=== PATIENT | male | born 1995 | race Caucasian/White ===

== ENCOUNTER 2021-06-21 08:58 | Emergency (ER) | payer MEDICARE, OTHER, MEDICAID, SELFPAY ==
--- NOTE | ~2021-06-21 | XR_ITS ---
XR hand RT min 3V 06/21/2021 09:23 Indication: Right hand pain after trauma. Seizure. Procedure: 3 views right hand Comparison: No prior studies for comparison. Findings: No fracture, subluxation or dislocation. No significant soft tissue abnormality. No foreign body. Impression: 1: No acute fracture. Reviewed, dictated and finalized at location A. ICE ENTRANCE ATTENDANT Impression: 1: No acute fracture.
[2021-06-21 09:15] VITALS: BP 143/75; PULSE 137; RESP 14; TEMP 37.1; O2SAT 99
--- NOTE | 2021-06-21 09:26 | PC.NURSE ---
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
--- NOTE | 2021-06-21 09:43 | ED.GENADULT ---
HPI - General Adult General Chief complaint: Extremity Injury, Upper Stated complaint: right hand injury Source: patient Mode of arrival: ambulatory Limitations: no limitations History of Present Illness HPI narrative: Patient presents for evaluation of pain in the fifth digit of the right hand. Parents indicate patient was with his grandmother at the grocery store yesterday when he had a seizure that lasted approximately 30 seconds. Patient has a known seizure disorder and is compliant with antiepileptics. He also has a vagal nerve stimulator. Neurologist is Dr. Peoples. Pt does have 4-5 seizures per day. Parents state during yesterday's seizure he got the fifth digit of his right hand stuck in a grocery cart. He has had pain in affected area since that time and has some bruising to that digit. He is ambidextrous. Parents state he did not bite his tongue nor was he incontinent. Related Data Home Medications Medication Instructions Recorded Confirmed amlodipine 10 mg PO DAILY 06/21/21 06/21/21 cannabidiol [Epidiolex] 8 mg PO BID 06/21/21 06/21/21 clobazam 10 mg PO BID 06/21/21 06/21/21 lacosamide [Vimpat] 150 mg PO BID 06/21/21 06/21/21 quetiapine 50 mg PO BID 06/21/21 06/21/21 Allergies Allergy/AdvReac Type Severity Reaction Status Date / Time amoxicillin [From Augmentin] Allergy Hives Verified 06/21/21 09:22 clavulanic acid Allergy Hives Verified 06/21/21 09:22 [From Augmentin] lorazepam [From Ativan] Allergy Anaphylaxis Verified 06/21/21 09:22 prochlorperazine Allergy Swelling Verified 06/21/21 09:22 [From Compazine] of Lip/Tongue/Throat selamate Allergy Rash Uncoded 06/21/21 09:22 Review of Systems Review of Systems: CONSTITUTIONAL: Denies fever, chills, or sweats. EYES: Denies visual changes, redness, or discharge. ENT: Denies rhinorrhea, congestion, sore throat, or otalgia. CARDIOVASCULAR: Denies chest pain, palpitations, or edema. RESPIRATORY: Denies cough or dyspnea. GASTROINTESTINAL: Denies abdominal pain, nausea, vomiting, or diarrhea. GENITOURINARY: Denies dysuria or hematuria. SKIN: Reports bruising to fifth digit of right hand. Denies rash or itching. MUSCULOSKELETAL: Reports pain in fifth digit of right hand. Denies back pain or myalgia. NEUROLOGIC: Reports recent seizure. Denies headache, numbness, dizziness, or weakness. PSYCHIATRIC: Denies anxiety or depression. [facility] Past Medical History Medical History (Updated 06/21/21 @ 09:53 by JESSICA Sheldon, ) Hypertension Kidney disease Seizure Surgical History Surgical History Hx of tonsillectomy Status post VNS (vagus nerve stimulator) placement Family History Family History Mother Medical history non-contributory Social History Social History Smoking status: Never smoker Substance use: never Living arrangements: with family Gender identity (if verbalized by the patient): Male Spiritual care concerns: No Exam Narrative: GENERAL: Well-appearing, well-nourished, and in no acute distress. HEAD: Normocephalic, atraumatic. EYES: PERRLA and EOMI. ENT: Nares clear, no rhinorrhea or epistaxis. Mucous membranes moist. Oropharynx without tonsillar hypertrophy exudate or other lesions. Bilateral TMs pearly sánchez nonbulging NECK: Supple. No adenopathy or masses. No carotid bruits or JVD CHEST: Clear to auscultation. No respiratory distress. No wheezes rales or rhonchi HEART: Regular rate and rhythm. No murmur heard. Normal peripheral pulses. ABDOMEN: Soft, nontender, nondistended, normal active bowel sounds. EXTREMITIES: Tenderness over PIP joint of fifth digit of the right hand. Normal range of motion. No edema. SKIN: Ecchymosis noted overlying the PIP joint of the fifth digit of the right hand. Skin is warm, dry, no rash. NEUR
== END 2021-06-21 10:02 | disposition home or self-care (01) ==
PROVIDERS: Emergency Provider Nurse Practitioner; PCP Internal Medicine
DX: S60.051A Contusion of right little finger without damage to nail, initial encounter (principal); X58.XXXA Exposure to other specified factors, initial encounter; I10 Essential (primary) hypertension; G40.909 Epilepsy, unspecified, not intractable, without status epilepticus; N28.9 Disorder of kidney and ureter, unspecified
CPT/HCPCS: 29130; 73130; 99213; G0463

== ENCOUNTER 2022-05-04 16:55 | Emergency (ER) | payer MEDICARE, OTHER, MEDICAID, SELFPAY ==
--- NOTE | ~2022-05-04 | XR_ITS ---
XR foot LT min 3V DATE: 05/04/2022 18:24 INDICATION: Fall. Left lateral ankle and dorsal foot pain TECHNIQUE: 4 views COMPARISON: None FINDINGS: There is osteopenia. Hallux valgus and bunion deformity. Pes planus. No fracture or dislocation, periosteal reaction or bone destruction. Virtually nondisplaced lateral malleolar fracture. IMPRESSION: Virtually nondisplaced lateral malleolar fracture Osteopenia Reviewed, dictated and finalized at location A. [employer]ED [employer] BOARD
--- NOTE | ~2022-05-04 | XR_ITS ---
XR ankle LT min 3V DATE: 05/04/2022 18:24 INDICATION: Fall. Left lateral ankle pain. Dorsal foot pain. TECHNIQUE: 4 views COMPARISON: None FINDINGS: There is a nondisplaced linear oblique fracture of the lateral malleolus with overlying sof t tissue swelling. The medial malleolus and posterior malleolus appear intact. Ankle mortise is prese rved. Diffuse osteopenia. IMPRESSION: Nondisplaced lateral malleolar fracture Reviewed, dictated and finalized at location A. 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
--- NOTE | 2022-05-04 17:01 | ED.LOWEXIN ---
HPI - Extremity Injury (Lower) General Stated Complaint: Fall Injury/Left Foot Injury Time Seen by Provider: 05/04/22 17:15 Source: patient and RN notes reviewed Mode of arrival: ambulatory Limitations: no limitations History of Present Illness HPI Narrative: 26 year old male presents with concern for ankle pain.? Mother reports patient has a seizure disorder, had a seizure today and fell and is having left ankle pain. He is normally weight-bearing, will not bear weight on the left lower extremity. He reports lateral pain with palpation..? Patient has a known seizure disorder and is compliant with antiepileptics.? He also has a vagal nerve stimulator.? Neurologist is Dr. Peoples.? Pt does have 4-5 seizures per day. Patient reports bruising and swelling to the ankle Related Data Home Medications Medication Instructions Recorded Confirmed amlodipine 10 mg tablet 10 mg PO DAILY 06/21/21 06/21/21 cannabidiol 100 mg/mL oral 8 mg PO BID 06/21/21 06/21/21 solution (Epidiolex) clobazam 10 mg tablet 10 mg PO BID 06/21/21 06/21/21 lacosamide 150 mg tablet (Vimpat) 150 mg PO BID 06/21/21 06/21/21 quetiapine 50 mg tablet 50 mg PO BID 06/21/21 06/21/21 Allergies Allergy/AdvReac Type Severity Reaction Status Date / Time amoxicillin [From Augmentin] Allergy Hives Verified 06/21/21 09:22 clavulanic acid Allergy Hives Verified 06/21/21 09:22 [From Augmentin] lorazepam [From Ativan] Allergy Anaphylaxis Verified 06/21/21 09:22 prochlorperazine Allergy Swelling Verified 06/21/21 09:22 [From Compazine] of Lip/Tongue/Throat selamate Allergy Rash Uncoded 06/21/21 09:22 Review of Systems Review of Systems: CONSTITUTIONAL: Denies malaise, chills, sweats, or fever. SKIN: Denies rash or itching, open skin, laceration, abrasion, redness, warmth MUSCULOSKELETAL: Reports left ankle pain, swelling, bruising NEUROLOGIC: Denies numbness, weakness All systems reviewed & are unremarkable except as noted in HPI and below PMFSH Past Medical History Medical History (Updated 05/04/22 @ 18:43 by Sarah Carrillo NP) Hypertension Kidney disease Seizure Surgical History Surgical History Hx of tonsillectomy Status post VNS (vagus nerve stimulator) placement Family History Family History Mother Medical history non-contributory Social History Social History Smoking status: Never smoker Substance use: never Gender identity (if verbalized by the patient): Male Spiritual care concerns: No Comments At time of signature, agree with nursing past medical, surgical, social and family history. There is no relevant family history pertinent to the presenting complaint Exam Narrative: GENERAL: Well-appearing, well-nourished, and in no acute distress. HEAD: Normocephalic, atraumatic. EYES: PERRLA, conjunctivae clear NECK: Supple. CHEST: Speaks in full sentences. No respiratory distress. HEART: Regular rate and rhythm. Normal and equal peripheral pulses. EXTREMITIES: [Xxx] has normal strength and sensation, normal range of motion. No edema or ecchymosis. 5/5 strength with [xxx] flexion and extension. Normal sensation with sensitivity to light touch and pain. No point tenderness. No open wounds, no skin tenting, no devitalized tissue or atrophy, no trophic changes, no obvious deformity, alignment normal, nearby joints and structures intact. Distal pulses palpable and equal bilaterally, skin warm, dry, pink. Capillary refill less than 3 seconds. SKIN: Warm, dry, no rash. NEURO: Alert and oriented x3. PSYCH: Normal mood and affect Course Course Emergency Course: Patient is aware of diagnosis, understands and agrees to treatment plan. Anticipatory guidance given. Patient agrees to follow-up as directed and is aware of reasons to seek care at the emergency
[2022-05-04 17:07] VITALS: BP 131/80; PULSE 107; RESP 16; TEMP 36.5; O2SAT 100
--- NOTE | 2022-05-04 17:34 | PC.NURSE ---
Sent to [facility] for x-ray. Provider spoke with Rowena at [facility]. Address given. Left in stable condition.
--- NOTE | 2022-05-04 18:05 | PC.NURSE ---
Pt arrived from [facility] with parents, no change in status.
== END 2022-05-04 19:20 | disposition home or self-care (01) ==
PROVIDERS: Emergency Provider Nurse Practitioner
DX: S82.65XA Nondisplaced fracture of lateral malleolus of left fibula, initial encounter for closed fracture (principal); G40.909 Epilepsy, unspecified, not intractable, without status epilepticus; I10 Essential (primary) hypertension; W19.XXXA Unspecified fall, initial encounter
CPT/HCPCS: 29515; 73610; 73630; 99214; G0463

== ENCOUNTER 2022-06-02 12:55 | Emergency (ER) | payer MEDICARE, OTHER, MEDICAID, SELFPAY ==
[2022-06-02 12:57] VITALS: BP 129/83; PULSE 91; RESP 18; TEMP 36.6; O2SAT 100
--- NOTE | 2022-06-02 13:30 | ED.SKABFB ---
HPI - Skin/Abscess/Foreign Bdy General Chief complaint: Skin/Abscess/Foreign Body Stated complaint: Rash Time Seen by Provider: 06/02/22 13:30 Source: patient Mode of arrival: ambulatory Limitations: no limitations History of Present Illness HPI narrative: 26 yo M presents with Mom with tenderness and swelling to L axilla. Mother reports that pt had pump remove to L axilla area approx. 2 wks ago. pt had pump there for 15 years. was removed by his neurosurgeon. Mom reports when they went back for follow up Only had 1 swollen lymph nodes show she did not mention it to the physician. States now multiple swollen and painful lymph nodes. Patient is afebrile. all systems reviewed and negative except as noted above. Related Data Home Medications Medication Instructions Recorded Confirmed amlodipine 10 mg tablet 10 mg PO DAILY 06/21/21 06/02/22 cannabidiol 100 mg/mL oral 8 mg PO BID 06/21/21 06/02/22 solution (Epidiolex) clobazam 10 mg tablet 5 mg PO BID 06/21/21 06/02/22 lacosamide 150 mg tablet (Vimpat) 150 mg PO BID 06/21/21 06/02/22 quetiapine 50 mg tablet 50 mg PO DAILY 06/21/21 06/02/22 clonazepam 0.5 mg disintegrating 0.5 mg PO DAILY PRN Seizures 06/02/22 06/02/22 tablet dexamethasone 0.5 mg/5 mL oral 0.5 mg PO DAILY 06/02/22 06/02/22 elixir diazepam (Valtoco) 15 mg intranasal DAILY PRN 06/02/22 06/02/22 Congestion everolimus (antineoplastic) 10 mg 10 mg PO DAILY 06/02/22 06/02/22 tablet Allergies Allergy/AdvReac Type Severity Reaction Status Date / Time amoxicillin [From Augmentin] Allergy Hives Verified 06/02/22 13:33 clavulanic acid Allergy Hives Verified 06/02/22 13:33 [From Augmentin] felbamate [From Felbatol] Allergy Unknown Verified 06/02/22 13:34 lorazepam [From Ativan] Allergy Anaphylaxis Verified 06/02/22 13:33 prochlorperazine Allergy Swelling Verified 06/02/22 13:33 [From Compazine] of Lip/Tongue/Throat Review of Systems Review of Systems: CONSTITUTIONAL: Denies fever, chills, or sweats. EYES: Denies visual changes, redness, or discharge. ENT: Denies rhinorrhea, congestion, sore throat, or otalgia. CARDIOVASCULAR: Denies chest pain, palpitations, or edema. RESPIRATORY: Denies cough or dyspnea. GASTROINTESTINAL: Denies abdominal pain, nausea, vomiting, or diarrhea. GENITOURINARY: Denies dysuria or hematuria. SKIN: Denies rash or itching. Reports enlarged and painful lymph nodes left axilla. MUSCULOSKELETAL: Denies back pain, joint pain, or myalgia. NEUROLOGIC: Denies headache, numbness, or weakness. PSYCHIATRIC: Denies anxiety or depression. All other systems reviewed are negative, except as documented in HPI. [facility] Past Medical History Medical History Hypertension Kidney disease Seizure Surgical History Surgical History Hx of tonsillectomy Status post VNS (vagus nerve stimulator) placement Family History Family History Mother Medical history non-contributory Social History Social History Smoking status: Never smoker Substance use: never Gender identity (if verbalized by the patient): Male Spiritual care concerns: No Comments At time of signature, agree with nursing past medical, surgical, social and family history. There is no relevant family history pertinent to the presenting complaint. Exam Narrative: GENERAL: This is a well-nourished, well-developed patient, in no apparent distress. HEAD: normocephalic, atraumatic. EYES: PERRL. Sclera clear/white. Vision is grossly intact. EARS: External ears normal NOSE: External nose normal NECK: Neck supple, non-tender without lymphadenopathy, masses or thyromegaly. CARDIOVASCULAR: Regular rate and rhythm without murmurs, gallops, or rubs. RESPIRATORY: Clear to auscultatio
== END 2022-06-02 13:40 | disposition home or self-care (01) ==
PROVIDERS: Emergency Provider Nurse Practitioner Family
DX: L03.122 Acute lymphangitis of left axilla (principal); I10 Essential (primary) hypertension; G40.909 Epilepsy, unspecified, not intractable, without status epilepticus
CPT/HCPCS: 99213; G0463

== ENCOUNTER 2024-08-10 18:55 | Emergency (ER) | payer MEDICARE, OTHER, MEDICAID, SELFPAY ==
--- NOTE | ~2024-08-10 | XR_ITS ---
XR ankle RT min 3V Ordering provider: Aaliyah Delgado APRN History: . fall during seizure,not bearing weight . Comparison: None. FINDINGS: BONES: Lucency is seen in the distal metaphysis of the right fibula is noted suggestive of a fracture . Fracture in the lateral malleolus is seen which may be acute or chronic. . JOINT SPACES: Normal. SOFT TISSUES: Normal. IMPRESSION: Highly suggestive acute fracture in the distal metaphysis of the right fibula. Old fracture in the tip of the right fibula. Reviewed, dictated and finalized at location A.
--- OUTSIDE RECORDS SUMMARY | 2024-08-10 18:58 | XMS_ITS | Encounter Summary ---
Author Organization [facility] Healthcare Address [address] [place] [address] Care Team Providers Care Family And Marriage Counsellor Name Role Phone Nilton Jacob Primary Care Provider Wilson Kearns MD Unavailable Jerome Guy RN Unavailable [phone] Jovan Gomez MD Unavailable [phone] Valentin Peoples MD PhD Unavailable [phone] Ana Solis MA Unavailable [phone] Jerome Guy RN Unavailable [phone] Prabhu Ferraro MD Unavailable [phone] Reason for Visit * Auth/Cert Specialty Diagnoses / Procedures Referred By Contac t Referred To Contact Diagnoses abd pain and malfunctioning AV fistula Med Pool Referral ID Status Reason Start Date Expiration Date Visits Re quested Visits Authorized [id number] 1 1 Encounter Details Date Type Department Care Team (Late st Contact Info) Description 10/02/2023 Hospital Encounter [facility] ADMIT [address] [place], [place] [id number] Aidee Carr MD [address] [place] [address] Social History Tobacco Use Types Packs/Day Years Used Date Smoking Tobacco: Never Passive Smoke Exposure: Never Smokeless Tobacco: Never Alcohol Use Standard Drinks/Week Comments Yes 0 (1 standard drink = 0.6 oz pur e alcohol) [facility] Utilities Answer Date Recorded In the past 12 months has th e electric, gas, oil, or water company threatened to shut off services in your home? No 11/14/2023 Social Connection and Isolat ion Panel [NHANES] Answer Date Recorded In a typical week, how many times do you talk on the phone with family, friends, or neighbors? More than three times a week 11/14/2023 How often do you get togethe r with friends or relatives? More than three times a week 11/14/2023 How often do you attend chur ch or jew services? More than 4 times per year 11/14/2023 Do you belong to any clubs o r organizations such as denominational groups, unions, fraternal or athletic groups, or school groups? No 11/14/2023 How often do you attend meet ings of the clubs or organizations you belong to? Never 11/14/2023 Are you , , di vorced, , never , or living with a partner? Never 11/14/2023 AUDIT-C Answer Date Recorded Q1: How often do you have a drink containing alcohol? Never 05/07/2024 Q2: How many drinks containi ng alcohol do you have on a typical day when you are drinking? Patient does not drink Q3: How often do you have si x or more drinks on one occasion? Never 05/07/2024 Overall Financial Resource Strain (CARDIA) Answe r Date Recorded How hard is it for you to pa y for the very basics like food, housing, medical care, and heating? Not hard at all 11/14/2023 PHQ-2 Answer Date Recorded PHQ-2 Total Score (If total score is 3 or more points, staff should administer the PHQ-9) 0 03/13/2024 Hunger Vital Sign Answer Date Recorded Within the past 12 months, y ou worried that your food would run out before you got the money to buy more. Never true 11/14/19 24 Within the past 12 months, t he food you bought just didn't last and you didn't have money to get more. Never true 11/14/2023 PRAPARE - Transportation Answer Date Re corded In the past 12 months, has l ack of transportation kept you from medical appointments or from getting medications? No 05/2023 In the past 12 months, has l ack of transportation kept you from meetings, work, or from getting things needed for daily living? No 11/14/2023 Housing Stability Vital Sign Answer Junior e Recorded In the last 12 months, was t here a time when you were not able to pay the mortgage or rent on time? No 11/14/2023 In the past 12 months, how m any times have you moved where you were living? 0 11/14/2023 At any time in the past 12 m [facility], were you homeless or living in a prison (including now)? No 11/14/2023 Personal Safety Answer Date Recorded Have you ever been in or are you currently in a harmful physical or emotional relationship or is someone making you feel afraid or unsafe? Denies 07/16/2024 Education Answer Date Recorded What is the highest level of school you have completed or the highest degree you have received? GED or equivalent 05/2023 Sex and Gender Information Value Date Recorded Sex Assigned at Not on file Legal Sex Male 11:28 PM GUIDE ESCORT Gender Identity Male 02/01/2021 1:20 PM CDT Sexual Orientation Straight 02/01/2021 1: 20 PM CDT documented as of this encounter Functional Status * Audit-C Score Answer Date of Assessment Author 0 03/13/2024 1:07 PM CDT Tiff Hicks MA * Question Answer Date of Assessment Author Q1: How often do you have a drink containing alcohol? Never 03/13/2024 1:07 PM CDT Jay Hicks MA Q2: How many drinks containing alcohol do you have on a typical day when you are drinking? Patient does not drink 05/07/2024 9:54 AM GUIDE ESCORT Orin Pierce CMA Q3: How often do you have six or more drinks on one occasion? Never 03/13/2024 1:07 PM CDT Jay Hicks MA documented as of this encounter Miscellaneous Notes * Significant Event - Aidee Carr MD - 10/02/2023 6:35 AM CDT Outside Hospital Transfer Note Division of Hospital Medicine Call Participants Referring hospital or service: [facility] Referring provider: Sobia Jonas MD Other providers: Vascular Surgery (Galo) Clinical Info Reason for Transfer: Specialist Consult History: 27yoM with CKD IV, tuberous sclerosis, h/o seizures, developmental delay at OSH with N/V/diarrhea and coffee-ground emesis. Workup notable for CT with c/f colitis. Also noted was streaking erythema over new AVF (not yet in use) with decreased thrill. Started on abx. Vascular surgery consulted via TC and recommended transfer for their evaluation of AVF. Duplex ordered at OSH, likely will not be done until 10/02. Vitals: AF, HDS, on RA Labs: Cr 4.28 (baseline ~mid 3s), AG 19, HCO3 17, WBC 11.9, Hgb 13.3->11, Plt 185 Imaging: CT with c/f colitis Does patient consent to transfer: yes [facility] the [facility] yes-Nephrology (Patricia), Vascular Surgery (María) Problem list and anticipated needs upon transfer: 1. C/f infected AVF. Duplex ordered at OSH and pending. Pending results may need to d/w urgency of transfer or if patient can remain at OSH if duplex is reassuring. Cont abx. Anticipate Vascular surgery c/s upon arrival. Outcome Primary service: [facility] Urgency: Routine Information reflected above was gathered from referring provider and/or chart review. I have not seen or examined this patient. Aidee Carr MD Medicine Triage Attending documented in this encounter Plan of Treatment Not on file documented as of this encounter Visit Diagnoses Not on filedocumented in this encounter Additional Health Concerns Infection Onset Date Last Indicated Resolved Time C. difficile suspected 10/21/2023 10/21/202310/21 3:07 AM CDT COVID: Suspected 10/21/2023 10/21/2023 10/21/2023 6:31 PM CDT C. difficile 10/21/2023 11/12/2023 02/03/2024 11:2 6 AM CDT C. difficile suspected 11/12/2023 11/12/202311/11 9:35 PM CDT documented as of this encounter Care Teams Family And Marriage Counsellor Relationship Specialty Start Date End Date Nilton Jacob PA [address] [place] [address] [address] [facility] [place] [address] PCP - General Internal Medicine 01/14/22 Wilson Kearns MD [address] [place] [address] Consulting Physician Neurosurgery 04/30/22 Jerome Guy RN [address] [place] [address] [address] [place] [address] Document Processing Specialist 10/07/23 11/09/23 Jovan Gomez MD [address] [place] [address] Referring Physician Transplant 11/10/23 Valentin Peoples MD PhD [address] [place] [address] Referring Physician Neuro Spec Qual Child Neurology 11/10/23 Ana Solis MA [address] [place] [address] [address] [place] [address] ACO Care Feed Adviser 11/11/23 11/13/23 Jerome Guy RN [address] [place] [address] [address] [place] [address] Document Processing Specialist 11/14/23 11/27/23 Prabhu Ferraro MD [address] [place] [address] [address] [place] [id number] Consulting Physician Infectious Diseases 11/14/23 documented as of this encounter
--- OUTSIDE RECORDS SUMMARY | 2024-08-10 18:58 | XMS_ITS | Referral Summary ---
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 frequency Is improving, baseline is about ~[address] Peoples is his primary neurologist. He did not have any observed seizures overnight Per his Grandmother, who was present since 1500 yesterday. Depakote level 92 on 04/08, ammonia wnl. Plan: - Continue anti-seizure medications: Epidiolex 1400 BID, Onfi 10mg BID, Vimpat 200mg BID, Valproic acid 600 mg TID - Consider increasing depakote to 700mg TID if seizures are clustering, will discuss with Dr. Peoples - PRN Midazolam seizure > 5 minutes, for clusters (>10 seizures in 1 hour) discuss with fellow but likely depakote or vimpat load depending on depakote level, avoid clonazepam unless necessary - Sedated MRI Epilepsy w/ and w/o contrast delayed due to scheduling, will keep NPO with the possibility that we can get him into a slot - If mental status not improving, consider starting carnutine supplements, though would discuss with Dr. Peoples - PT/OT/ST Assessment & Plan (04/08/2019 5:[address] ADMINISTRATOR): Rolo is a 23 yo M with TS with medically refractory epilepsy and significant baseline seizure burden (clinical and subclinical) who presented in status epilepticus s/p midazolam infusion, pentobarbital infusion, and rapid initiation and up titration of valproic acid. Continuous EEG was discontinued on 04/01 as he began to demonstrate improvements in his mental status and ability to track clinical seizures following washout of sedative medications which was prolonged, likely due to chronic kidney disease. Transferred from PICU to 04/05. Seizure frequency Is improving, baseline is about ~[address] Peoples is his primary neurologist. He did not have any observed seizures overnight. Plan: - Continue anti-seizure medications: Epidiolex 1400 BID, Onfi 10mg BID, Vimpat 200mg BID, Valproic acid 600 mg TID - Consider increasing depakote to 700mg TID if seizures worsen, will discuss with Dr. Peoples - Will draw depakote trough this afternoon - CMP, CBC, ammonia this afternoon - PRN Midazolam seizure > 5 minutes, for clusters (>10 seizures in 1 hour) discuss with fellow but likely depakote or vimpat load depending on depakote level, avoid clonazepam unless necessary - Sedated MRI Epilepsy w/ and w/o contrast 04/09 unless return to baseline by that time, NPO at midnight - If mental status not improving, consider starting carnutine supplements, though would discuss with Dr. Peoples - PT/OT/ST Assessment & Plan (04/07/2019 5:[address] ADMINISTRATOR): Rolo is a 23 yo M with TS with medically refractory epilepsy and significant baseline seizure burden (clinical and subclinical) who presented in status epilepticus s/p midazolam infusion, pentobarbital infusion, and rapid initiation and up titration of valproic acid. Continuous EEG was discontinued on 04/01 as he began to demonstrate improvements in his mental status and ability to track clinical seizures following washout of sedative medications which was prolonged, likely due to chronic kidney disease. Transferred from PICU to 04/05. Did cluster overnight but this improved following a depakote load. Seizure frequency Is improving, baseline is about ~[address] Peoples is his primary neurologist. Plan: - Continue anti-seizure medications: Epidiolex 1400 BID, Onfi 10mg BID, Vimpat 200mg BID, will change Valproic acid for QID to 600 mg TID - PRN Midazolam seizure > 5 minutes, add Clonazepam for clusters (>10 seizures in 1 hour) - Sedated MRI Epilepsy w/ and w/o contrast 04/09 unless return to baseline by that time - Can consider further depakote loads if seizure frequency is increased, but will discuss with Dr. Peoples first - If mental status not improving, consider ammonia level and possibly starting carnutine supplements, though would discuss with Dr. Peoples - PT/OT/ST Assessment & Plan (04/07/2019 4:[address] ADMINISTRATOR): Rolo is a 23 yo M with TS with medically refractory epilepsy and significant baseline seizure burden (clinical and subclinical) who presented in status epilepticus s/p midazolam infusion, pentobarbital infusion, and rapid initiation and up titration of valproic acid. Continuous EEG was discontinued on 04/01 as he began to demonstrate improvements in his mental status and ability to track clinical seizures following washout of sedative medications which was prolonged, likely due to chronic kidney disease. Transferred from PICU to 04/05. Did cluster overnight but this improved following a depakote load. Seizure frequency Is improving, baseline is about ~[address] Peoples is his primary neurologist. Plan: - Continue anti-seizure medications: Epidiolex 1400 BID, Onfi 10mg BID, Vimpat 200mg BID, will change Valproic acid for QID to 600 mg TID - PRN Midazolam seizure > 5 minutes, add Clonazepam for clusters (>10 seizures in 1 hour) - Sedated MRI Epilepsy w/ and w/o contrast 04/09 unless return to baseline by that time - Can consider further depakot loads if seizure frequency is increased, but will discuss with Dr. Peoples first - If mental status not improving, consider ammonia level and possibly starting carnutine supplements, though would discuss with Dr. Peoples - PT/OT Assessment & Plan (04/06/2019 6:[address] ADMINISTRATOR): - Continue depakote, lincosamide, Onfi, and epidiolex - Consider increasing depakote if increasing clustering of seizures or worsening mental status - Consider ammonia level, adding carnitine if mental status is worsening Tuberous sclerosis 05/28/2007 Assessment & Plan (05/06/2019 10:[address] ADMINISTRATOR): Rolo Bermeo is a 23 y.o. male with a past medical history of tuberous sclerosis, medically refractory epilepsy s/p corpus callostomy with history of status epilepticus, and chronic kidney disease who presents with chronic lethargy and several lab abnormalities. Patient follows in TS clinic with Dr. Peoples. Patient had multiple medication changes recently per Dr. Peoples/s recommendations for increased lethargy. Is possible that patient's medications are contributing to acute kidney injury, chronic kidney disease, thrombocytopenia, and anemia. Patient's seizures have been reasonably controlled on his current medications. Mom reports that he has not had a frequent tonic-clonic seizures, but has had some staring spells that she thinks may be absence seizures. If patient's current clinical status is due to AEDs, medication changes will be needed. Plan: - Continue seizure medications - Onfi 5mg in the morning and 10mg at night (0.28mg/kg/day) - Epidiolex 13ml BID (50mg/kg/day) - Valproic acid 125mg TID (7mg/kg/day) - lacosamide 150mg BID (5.6 mg/kg/day) - PRN Ativan and Diastat - seizure precautions - fall precautions Assessment & Plan (05/05/2019 10:[address] ADMINISTRATOR): Rolo Bermeo is a 23 y.o. male with a past medical history of tuberous sclerosis, medically refractory epilepsy s/p corpus callostomy with history of status epilepticus, and chronic kidney disease who presents with chronic lethargy and several lab abnormalities. Patient follows in TS clinic with Dr. Peoples. Patient had multiple medication changes recently per Dr. Peoples/s recommendations for increased lethargy. Is possible that patient's medications are contributing to acute kidney injury, chronic kidney disease, thrombocytopenia, and anemia. Patient's seizures have been reasonably controlled on his current medications. Mom reports that he has not had a frequent tonic-clonic seizures, but has had some staring spells that she thinks may be absence seizures. If patient's current clinical status is due to AEDs, medication changes will be needed. Plan: - Continue seizure medications - Onfi 5mg in the morning and 10mg at night (0.28mg/kg/day) - Epidiolex 13ml BID (50mg/kg/day) - Valproic acid 125mg TID (7mg/kg/day) - lacosamide 150mg BID (5.6 mg/kg/day) - PRN Ativan and Diastat - seizure precautions - fall precautions Assessment & Plan (04/28/2019 1:[address] ADMINISTRATOR): Rolo Bermeo is a 23 y.o. male with a past medical history of tuberous sclerosis, medically refractory epilepsy s/p corpus callostomy with history of status epilepticus, and chronic kidney disease who presents with chronic lethargy and several lab abnormalities. Patient follows in TS clinic with Dr. Peoples. Patient had multiple medication changes recently per Dr. Peoples/s recommendations for increased lethargy. Is possible that patient's medications are contributing to acute kidney injury, chronic kidney disease, thrombocytopenia, and anemia. Patient's seizures have been reasonably controlled on his current medications. Mom reports that he has not had a frequent tonic-clonic seizures, but has had some staring spells that she thinks may be absence seizures. If patient's current clinical status is due to AEDs, medication changes will be needed. Plan: - Continue seizure medications - Onfi 5mg in the morning and 10mg at night (0.28mg/kg/day) - Epidiolex 13ml BID (50mg/kg/day) - Valproic acid 125mg TID (7mg/kg/day) - lacosamide 150mg BID (5.6 mg/kg/day) - PRN Ativan and Diastat - seizure precautions - fall precautions Assessment & Plan (04/27/2019 6:[address] ADMINISTRATOR): Rolo Bermeo is a 23 y.o. male with a past medical history of tuberous sclerosis, medically refractory epilepsy s/p corpus callostomy with history of status epilepticus, and chronic kidney disease who presents with chronic lethargy and several lab abnormalities. Patient follows in TS clinic with Dr. Peoples. Patient had multiple medication changes recently per Dr. Peoples/s recommendations for increased lethargy. Is possible that patient's medications are contributing to acute kidney injury, chronic kidney disease, thrombocytopenia, and anemia. Patient's seizures have been reasonably controlled on his current medications. Mom reports that he has not had a frequent tonic-clonic seizures, but has had some staring spells that she thinks may be absence seizures. If patient's current clinical status is due to AEDs, medication changes will be needed. Plan: - Continue seizure medications - Onfi 5mg in the morning and 10mg at night (0.28mg/kg/day) - Epidiolex 13ml BID (50mg/kg/day) - Valproic acid 125mg TID (7mg/kg/day) - lacosamide 150mg BID (5.6 mg/kg/day) - PRN Ativan and Diastat - seizure precautions - fall precautions Resolved Problems Problem Noted Date Diagnosed Date Resolved Date Pancolitis 10/21/2023 11/10/2023 Coffee ground emesis 10/03/2023 024 Cellulitis of left upper ext remity secondary to thrombosed hemodialysis fistula 10/02/202310/16 End stage renal disease 02/23/2023 06/0 07/2023 Lymphadenopathy, axillary 06/14/2022 Assessment & Plan (06/14/2022 5:[address] ADMINISTRATOR): Likely the result of his recent vagus nerve stimulator removal. He seems to have responded very well to his cephalexin and will repeat the course for 7 more days. She needs to alert his surgeon of this episode. Warning signs of worsening infection discussed at length which would prompt repeat visit here or to the ER or the surgeon's office. PE (physical exam), annual 09/08/2020 1 06/23/2021 Assessment & Plan (09/11/2021 11:12 AM CDT): Well exam seen yr'ly with renal neuro care chronicically for ongoing needs. Xray ordered for toe eval as supect fx of ist toe. tetnus would be susggested to update. See yr'ly for screen Assessment & Plan (09/08/2020 4:26 PM CDT): From peds and up to date But tetnus ans will check into. crf and seiures treated by specialist Fall flu shot and And covid shots. . Lae per psecilaist and see for acute illnes. BMI 22.0-22.9, adult 09/08/2020 022 Acute pain of right knee 06/11/201907/2022 Thrombocytopenia 04/27/2019 11/10/2023 Assessment & Plan (05/06/2019 10:[address] ADMINISTRATOR): Rolo Bermeo is a 23 y.o. male with a past medical history of tuberous sclerosis, medically refractory epilepsy s/p corpus callostomy with history of status epilepticus, and chronic kidney disease who presents with chronic lethargy and several lab abnormalities. Patient was found to have platelets of 20 on initial examination and repeat showed 12. Etiology of patient's thrombocytopenia is currently on known. Possible etiologies include side effect of Depakote with bone marrow suppression given low reticulocyte count and anemia, ITP, or malignancy. Further work up is needed. Plan: - Hematology Consult - CBC, PT/PTT, direct mabel, haptoglobin, LDH, fibrinogen Assessment & Plan (05/05/2019 10:[address] ADMINISTRATOR): Rolo Bermeo is a 23 y.o. male with a past medical history of tuberous sclerosis, medically refractory epilepsy s/p corpus callostomy with history of status epilepticus, and chronic kidney disease who presents with chronic lethargy and several lab abnormalities. Patient was found to have platelets of 20 on initial examination and repeat showed 12. Etiology of patient's thrombocytopenia is currently on known. Possible etiologies include side effect of Depakote with bone marrow suppression given low reticulocyte count and anemia, ITP, or malignancy. Further work up is needed. Plan: - Hematology Consult - CBC, PT/PTT, direct mabel, haptoglobin, LDH, fibrinogen Assessment & Plan (04/28/2019 1:[address] ADMINISTRATOR): Rolo Bermeo is a 23 y.o. male with a past medical history of tuberous sclerosis, medically refractory epilepsy s/p corpus callostomy with history of status epilepticus, and chronic kidney disease who presents with chronic lethargy and several lab abnormalities. Patient was found to have platelets of 20 on initial examination and repeat showed 12. Etiology of patient's thrombocytopenia is currently on known. Possible etiologies include side effect of Depakote with bone marrow suppression given low reticulocyte count and anemia, ITP, or malignancy. Further work up is needed. Plan: - Hematology Consult - CBC, PT/PTT, direct mabel, haptoglobin, LDH, fibrinogen Assessment & Plan (04/27/2019 6:[address] ADMINISTRATOR): Rolo Bermeo is a 23 y.o. male with a past medical history of tuberous sclerosis, medically refractory epilepsy s/p corpus callostomy with history of status epilepticus, and chronic kidney disease who presents with chronic lethargy and several lab abnormalities. Patient was found to have platelets of 20 on initial examination and repeat showed 12. Etiology of patient's thrombocytopenia is currently on known. Possible etiologies include side effect of Depakote with bone marrow suppression given low reticulocyte count and anemia, ITP, or malignancy. Further work up is needed. Plan: - Hematology Consult - CBC, PT/PTT, direct mabel, haptoglobin, LDH, fibrinogen Somnolence 04/18/2019 09/16/2022 Assessment & Plan (05/06/2019 10:[address] ADMINISTRATOR): Rolo Bermeo is a 23 y.o. male with a past medical history of tuberous sclerosis, medically refractory epilepsy s/p corpus callostomy with history of status epilepticus, and chronic kidney disease who presents with chronic lethargy and several lab abnormalities. Patient has had increased lethargy, reduced activity, and weakness since previous admission for status epilepticus. Patient is no longer to complete his ADLs. Is much less interactive with family. Parents states that they have to push to keep him awake for greater than 2 hours at a time. Patient's neurologic exam shows weakness, poor muscle tone, hyper reflexia the lower extremities and clonus at the ankles. Cranial nerves are intact. Face is symmetric. Patient is able to follow simple commands. Etiology of patient's somnolence is currently unknown but may be a side effect of his medications including his Depakote. Uremic encephalopathy is also possible, but less likely with BUN on 48. Further workup in medication changes will be needed. Plan: - see plan for TS Assessment & Plan (05/05/2019 10:[address] ADMINISTRATOR): Rolo Bermeo is a 23 y.o. male with a past medical history of tuberous sclerosis, medically refractory epilepsy s/p corpus callostomy with history of status epilepticus, and chronic kidney disease who presents with chronic lethargy and several lab abnormalities. Patient has had increased lethargy, reduced activity, and weakness since previous admission for status epilepticus. Patient is no longer to complete his ADLs. Is much less interactive with family. Parents states that they have to push to keep him awake for greater than 2 hours at a time. Patient's neurologic exam shows weakness, poor muscle tone, hyper reflexia the lower extremities and clonus at the ankles. Cranial nerves are intact. Face is symmetric. Patient is able to follow simple commands. Etiology of patient's somnolence is currently unknown but may be a side effect of his medications including his Depakote. Uremic encephalopathy is also possible, but less likely with BUN on 48. Further workup in medication changes will be needed. Plan: - see plan for TS Assessment & Plan (04/28/2019 1:[address] ADMINISTRATOR): Rolo Bermeo is a 23 y.o. male with a past medical history of tuberous sclerosis, medically refractory epilepsy s/p corpus callostomy with history of status epilepticus, and chronic kidney disease who presents with chronic lethargy and several lab abnormalities. Patient has had increased lethargy, reduced activity, and weakness since previous admission for status epilepticus. Patient is no longer to complete his ADLs. Is much less interactive with family. Parents states that they have to push to keep him awake for greater than 2 hours at a time. Patient's neurologic exam shows weakness, poor muscle tone, hyper reflexia the lower extremities and clonus at the ankles. Cranial nerves are intact. Face is symmetric. Patient is able to follow simple commands. Etiology of patient's somnolence is currently unknown but may be a side effect of his medications including his Depakote. Uremic encephalopathy is also possible, but less likely with BUN on 48. Further workup in medication changes will be needed. Plan: - see plan for TS Assessment & Plan (04/27/2019 6:[address] ADMINISTRATOR): Rolo Bermeo is a 23 y.o. male with a past medical history of tuberous sclerosis, medically refractory epilepsy s/p corpus callostomy with history of status epilepticus, and chronic kidney disease who presents with chronic lethargy and several lab abnormalities. Patient has had increased lethargy, reduced activity, and weakness since previous admission for status epilepticus. Patient is no longer to complete his ADLs. Is much less interactive with family. Parents states that they have to push to keep him awake for greater than 2 hours at a time. Patient's neurologic exam shows weakness, poor muscle tone, hyper reflexia the lower extremities and clonus at the ankles. Cranial nerves are intact. Face is symmetric. Patient is able to follow simple commands. Etiology of patient's somnolence is currently unknown but may be a side effect of his medications including his Depakote. Uremic encephalopathy is also possible, but less likely with BUN on 48. Further workup in medication changes will be needed. Plan: - see plan for TS Assessment & Plan (04/19/2019 1:[address] ADMINISTRATOR): Rolo is a 23 year old man with PMH tuberous sclerosis, cerebral palsy, medically refractory epilepsy with VNS, and chronic kidney disease c/b hypertension who presents with 1 week of fatigue and emesis. It is unclear to what degree the fatigue was present during prior admission and at time of discharge. However since discharge it is clear that he has not been behaving at baseline nor able to ambulate or perform his baseline ADLs. He has not had any seizures or unresponsiveness since discharge, making subclinical seizure, status or post-ictal state not likely. He did have 2 falls from sitting that were not witnessed therefore head trauma is unclear, however based on history his symptoms of fatigue and somnolence predated this event. With new onset of emesis during this timeframe as well as toxic level of VPA, which was recently started at last hospitalization, there is concern for valproate toxicity. Furthermore, renal impairment in MATTEO can contribute to decreased binding of VPA, thereby increasing serum levels. Of note valproate level was drawn about an hour and a half after administration of his 2PM dose, whereas typically should be drawn just prior to dose, therefore unclear to what degree VPA level is truly elevated. However, in context of present symptoms and with recent addition of valproate being the only new change, will hold valproate for now and repeat level in the morning to further determine whether there is toxicity present. - hold depakote - valproate level in AM - discuss further AED management with Dr. Peoples in AM - PT/OT Assessment & Plan (04/19/2019 12:[address] ADMINISTRATOR): Rolo is a 23 year old man with PMH tuberous sclerosis, cerebral palsy, medically refractory epilepsy with VNS, and chronic kidney disease c/b hypertension who presents with 1 week of fatigue and emesis. It is unclear to what degree the fatigue was present during prior admission and at time of discharge. However since discharge it is clear that he has not been behaving at baseline nor able to ambulate or perform his baseline ADLs. He has not had any seizures or unresponsiveness since discharge, making subclinical seizure, status or post-ictal state not likely. He did have 2 falls from sitting that were not witnessed therefore head trauma is unclear, however based on history his symptoms of fatigue and somnolence predated this event. With new onset of emesis during this timeframe as well as toxic level of VPA, which was recently started at last hospitalization, there is concern for valproate toxicity. Furthermore, renal impairment in MATTEO can contribute to decreased binding of VPA, thereby increasing serum levels. Of note valproate level was drawn about an hour and a half after administration of his 2PM dose, whereas typically should be drawn just prior to dose, therefore unclear to what degree VPA level is truly elevated. However, in context of present symptoms and with recent addition of valproate being the only new change, will hold valproate for now and repeat level in the morning to further determine whether there is toxicity present. - hold depakote - valproate level in AM - discuss further AED management with Dr. Peoples in AM - PT/OT MATTEO (acute kidney injury) ([facility]) 04/18/2019 09/15/2022 Assessment & Plan (05/06/2019 10:[address] ADMINISTRATOR): Rolo Bermeo is a 23 y.o. male with a past medical history of tuberous sclerosis, medically refractory epilepsy s/p corpus callostomy with history of status epilepticus, and chronic kidney disease who presents with chronic lethargy and several lab abnormalities. Patient follows in TS clinic with Dr. Peoples. 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 Patient got labs on 04/26 showing VPA = 129 (trough per mom, previously 85). Also GFR = 23 (previous 41), BUN/Cr - 48/3.83 (previous 23/2.06). Based on these labs Depakote was held and then decreased to 125 mg t.i.d. (unclear if previous dose was 125 mg QID per note or 375 mg TID per med history). Labs in ED notable for normal ammonia, mildly elevated hepatic enzymes, elevated Cr at 3.3 and K of 5.4, and Plts decrease at 20 and 12 on repeat. Current etiology of patient's MATTEO is unknown. Possible etiologies include medication side effect with Depakote highest on the differential, rhabdomyolysis given poor muscle tone weakness, and dark urine. Further workup is needed. Plan: - Consult Nephrology - encourage more PO fluid intake - mIVF D5 NS - continue home amlodipine, vitamin-D, iron Assessment & Plan (05/05/2019 10:[address] ADMINISTRATOR): Rolo Bermeo is a 23 y.o. male with a past medical history of tuberous sclerosis, medically refractory epilepsy s/p corpus callostomy with history of status epilepticus, and chronic kidney disease who presents with chronic lethargy and several lab abnormalities. Patient follows in TS clinic with Dr. Peoples. 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 Patient got labs on 04/26 showing VPA = 129 (trough per mom, previously 85). Also GFR = 23 (previous 41), BUN/Cr - 48/3.83 (previous /2.06). Based on these labs Depakote was held and then decreased to 125 mg t.i.d. (unclear if previous dose was 125 mg QID per note or 375 mg TID per med history). Labs in ED notable for normal ammonia, mildly elevated hepatic enzymes, elevated Cr at 3.3 and K of 5.4, and Plts decrease at 20 and 12 on repeat. Current etiology of patient's MATTEO is unknown. Possible etiologies include medication side effect with Depakote highest on the differential, rhabdomyolysis given poor muscle tone weakness, and dark urine. Further workup is needed. Plan: - Consult Nephrology - mIVF D5 NS - continue home amlodipine, vitamin-D, iron - repeat CMP, CK Assessment & Plan (04/28/2019 1:[address] ADMINISTRATOR): Rolo Bermeo is a 23 y.o. male with a past medical history of tuberous sclerosis, medically refractory epilepsy s/p corpus callostomy with history of status epilepticus, and chronic kidney disease who presents with chronic lethargy and several lab abnormalities. Patient follows in TS clinic with Dr. Peoples. 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 Patient got labs on 04/26 showing VPA = 129 (trough per mom, previously 85). Also GFR = 23 (previous 41), BUN/Cr - 48/3.83 (previous /2.06). Based on these labs Depakote was held and then decreased to 125 mg t.i.d. (unclear if previous dose was 125 mg QID per note or 375 mg TID per med history). Labs in ED notable for normal ammonia, mildly elevated hepatic enzymes, elevated Cr at 3.3 and K of 5.4, and Plts decrease at 20 and 12 on repeat. Current etiology of patient's MATTEO is unknown. Possible etiologies include medication side effect with Depakote highest on the differential, rhabdomyolysis given poor muscle tone weakness, and dark urine. Further workup is needed. Plan: - Consult Nephrology - mIVF D5 NS - continue home amlodipine, vitamin-D, iron - repeat CMP, CK Assessment & Plan (04/27/2019 6:[address] ADMINISTRATOR): Rolo Bermeo is a 23 y.o. male with a past medical history of tuberous sclerosis, medically refractory epilepsy s/p corpus callostomy with history of status epilepticus, and chronic kidney disease who presents with chronic lethargy and several lab abnormalities. Patient follows in TS clinic with Dr. Peoples. 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 Patient got labs on 04/26 showing VPA = 129 (trough per mom, previously 85). Also GFR = 23 (previous 41), BUN/Cr - 48/3.83 (previous /2.06). Based on these labs Depakote was held and then decreased to 125 mg t.i.d. (unclear if previous dose was 125 mg QID per note or 375 mg TID per med history). Labs in ED notable for normal ammonia, mildly elevated hepatic enzymes, elevated Cr at 3.3 and K of 5.4, and Plts decrease at 20 and 12 on repeat. Current etiology of patient's MATTEO is unknown. Possible etiologies include medication side effect with Depakote highest on the differential, rhabdomyolysis given poor muscle tone weakness, and dark urine. Further workup is needed. Plan: - Consult Nephrology - mIVF D5 NS - continue home amlodipine, vitamin-D, iron - repeat CMP, CK Assessment & Plan (04/19/2019 1:[address] ADMINISTRATOR): On admission patient has elevated creatinine compared to at discharge on week ago. Furthermore, he has had poor PO intake for the last week. MATTEO likely is secondary to dehydration. Will initiate IV rehydration therapy and monitor urine output. - 1000mL NSB - mIVF - strict I/O - repeat RFP in AM Assessment & Plan (04/19/2019 12:[address] ADMINISTRATOR): On admission patient has elevated creatinine compared to at discharge on week ago. Furthermore, he has had poor PO intake for the last week. MATTEO likely is secondary to dehydration. Will initiate IV rehydration therapy and monitor urine output. - 1000mL NSB - mIVF - strict I/O - repeat RFP in AM Pneumonia due to infectious organism 03/29/2019 09/11/2021 Assessment & Plan (04/10/2019 10:[address] ADMINISTRATOR): On 03/29, he was febrile, had a new left lower lobe infiltrate on chest x-ray, and had a tracheal aspirate growing gram negative bacilli (ultimately insufficient growth), and was started on IV cefepime on 03/29- for presumed ventilator-associated pneumonia. This was transitioned to ceftriaxone from 03/30- for a total of a 7 day course. Currently doing well on RA. Plan: - Will discontinue EzPAP today Assessment & Plan (04/09/2019 1:[address] ADMINISTRATOR): On 03/29, he was febrile, had a new left lower lobe infiltrate on chest x-ray, and had a tracheal aspirate growing gram negative bacilli (ultimately insufficient growth), and was started on IV cefepime on 03/29- for presumed ventilator-associated pneumonia. This was transitioned to ceftriaxone from 03/30- for a total of a 7 day course. Currently doing well on RA. Plan: - Wean EZPAP to daily Assessment & Plan (04/08/2019 5:[address] ADMINISTRATOR): On 03/29, he was febrile, had a new left lower lobe infiltrate on chest x-ray, and had a tracheal aspirate growing gram negative bacilli (ultimately insufficient growth), and was started on IV cefepime on 03/29- for presumed ventilator-associated pneumonia. This was transitioned to ceftriaxone from 03/30- for a total of a 7 day course. Currently doing well on RA. Plan: - Plan to wean EZPAP to daily tomorrow Assessment & Plan (04/07/2019 5:[address] ADMINISTRATOR): On 03/29, he was febrile, had a new left lower lobe infiltrate on chest x-ray, and had a tracheal aspirate growing gram negative bacilli (ultimately insufficient growth), and was started on IV cefepime on for presumed ventilator-associated pneumonia. This was transitioned to ceftriaxone from 03/30- for a total of a 7 day course. Currently doing well on RA. Plan: - Wean EZPAP to BID Assessment & Plan (04/07/2019 4:[address] ADMINISTRATOR): On 03/29, he was febrile, had a new left lower lobe infiltrate on chest x-ray, and had a tracheal aspirate growing gram negative bacilli (ultimately insufficient growth), and was started on IV cefepime on 03/29- for presumed ventilator-associated pneumonia. This was transitioned to ceftriaxone from 03/30- for a total of a 7 day course. Currently doing well on RA. Plan: - Continue EZPAP TID, can wean as tolerated Acute respiratory failure wi th hypoxia and hypercapnia 03/26/2019 09/21/2023 CKD (chronic kidney disease) stage 3, GFR 30-59 ml/min 03/15/2019 09/11/2021 Assessment & Plan (05/06/2019 10:[address] ADMINISTRATOR): See A&P for MATTEO Assessment & Plan (05/05/2019 10:[address] ADMINISTRATOR): See A&P for MATTEO Assessment & Plan (04/28/2019 1:[address] ADMINISTRATOR): See A&P for MATTEO Assessment & Plan (04/27/2019 6:[address] ADMINISTRATOR): See A&P for MATTEO Assessment & Plan (04/19/2019 1:[address] ADMINISTRATOR): Rolo has stage II CKD complicated by HTN. 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 His blood pressures have been adequately controlled on regimen of amlodipine 10mg daily for several years. Follows with [facility] nephrology annually. - continue amlodipine 10mg daily - q4hr VS Assessment & Plan (04/10/2019 10:[address] ADMINISTRATOR): Most recent Cr 1.65, baseline appears to be similar, though there is only one value from the year prior to admission in our system. Also noted to have anemia with most recent hgb of 9.1 (04/08), 8.8 on admission. Platelets were 99 when last checked 04/08. Plan: - Continue to monitor Assessment & Plan (04/09/2019 10:[address] ADMINISTRATOR): Most recent Cr 1.65, baseline appears to be similar, though there is only one value from the year prior to admission in our system. Also noted to have anemia with most recent hgb of 9.1 (04/08), 8.8 on admission. Platelets were 99 when last checked 04/08. Plan: - Continue to monitor Assessment & Plan (04/08/2019 5:[address] ADMINISTRATOR): Most recent Cr 1.87, baseline appears to be similar, though there is only one value from the year prior to admission in our system. Also noted to have anemia with most recent hgb of 7.4 (04/02), 8.8 on admission. Plan: - Continue to monitor Assessment & Plan (04/07/2019 4:[address] ADMINISTRATOR): Most recent Cr 1.87, baseline appears to be similar, though there is only one value from the year prior to admission in our system. Also noted to have anemia with most recent hgb of 7.4 (04/02), 8.8 on admission. Plan: - Continue to monitor Personal history of other di seases of the nervous system and sense organs 2017 11/23/19 18 Overview (2017): History of hearing loss - (Added by TW Conv) Fracture of fibula 05/08/2014 8 Nausea & vomiting 12/12/2012 09/15/2022 Assessment & Plan (06/14/2022 5:[address] ADMINISTRATOR): Probably due to the everolimus and his mother states improvement since discontinuation. Recommended further observation. If does not fully resolve may need EGD to rule out stricture. Okay to try Pepcid 20 mg daily as well Fracture of foot 12/10/2011 2017 Pain of foot 11/23/2011 2017 Fracture of metatarsal bone 06/02/2011 2017 Varicose veins of lower extremity 04/22/2009 2017 Obesity 04/22/2009 04/28/2018 Immunizations Immunization Administration Dates Next Due DTaP 12/03/2002,03/27/1998,01/07/1998 DTaP, Unspecified 03/11/1999,06/11/1998 H1N1 Inj 04/16/2009 Hep A, Unspecified 11/27/2009,11/25/2008 Hep B / HiB 01/07/1998 Hep B, Adolescent or Pediatric 1997 Hep B, Unspecified 09/08/1998 HiB 03/11/1999,06/11/1998,03/27/1998 IPV 12/03/2002,03/27/1998,01/07/1998 Influenza, Quadrivalent, Spl it, Pediatric, Preservative Free, Intramuscular 03/21/2014 Influenza, Quadrivalent, Spl it, Preservative Free, Intramuscular 03/01/2020,03/06/2019,03/10/2018 Influenza, Trivalent, Preser vative Free, Intramuscular 03/13/2024 Influenza, Unspecified 03/13/2024(Deferr ed: Patient Refused),02/13/2023(Deferred: Patient Refused),02/13/2023(Deferred: Patient Refused),02/13/2022(Deferred: Patient Refused),02/13/2021(Deferred: Patient Refused) MMR 12/03/2002,12/12/1998 Meningococcal ACWY, Unspecified 11/27/2009 Meningococcal Conjugate (Menveo) 12/11/2014 OPV 06/11/1998 Pneumococcal Conjugate Pcv20 09/21/2023 Tdap 11/25/2008 Social History Tobacco Use Types Packs/Day Years Used Date Smoking Tobacco: Never Passive Smoke Exposure: Never Smokeless Tobacco: Never Tobacco Cessation:Counseling Given: Not Answered Alcohol Use Standard Drinks/Week Comments Yes 0 (1 standard drink = 0.6 oz pur e alcohol) [employer] Answer Date Recorded In the past 12 months has [employer], gas, oil, or water [employer] threatened to shut off services in your [...] week 11/14/2023 How often do you attend [facility] or episcopalian services? More than 4 times per year 11/14/2023 Do you belong to any clubs o r organizations such as sikh groups, unions, fraternal or athletic groups, or [...] any time in the past 12 m [facility], were you homeless or living in a fpc (including now)? No 11/14/2023 Personal Safety Answer [...] on file Legal Sex Male 11:[address] ADMINISTRATOR Gender Identity Male 02/01/2021 1:20 PM CDT Sexual Orientation Straight 02/01/2021 1: 20 PM CDT Last Filed Vital Signs Vital Sign Reading Time Taken Comments Blood Pressure 136/69 07/16/2024 11:[address] ADMINISTRATOR Pulse 62 07/16/2024 11:[address] ADMINISTRATOR Temperature 36 C (96.8 F) 07/16/2024 11:[address] ADMINISTRATOR Respiratory Rate 18 07/16/2024 11:[address] ADMINISTRATOR Oxygen Saturation 99% 07/16/2024 11:[address] ADMINISTRATOR Inhaled Oxygen Concentration - - Weight 76.8 kg (169 lb 5 oz) 07/16/2024 9:[address] ADMINISTRATOR Height 165.5 cm (5' 5.16 ) 05/07/2024 9:51 AM CS T Body Mass Index 28.04 05/07/2024 9:[address] ADMINISTRATOR Plan of Treatment Not on file Medical Devices Implanted Type Area Property Clerk Device Identifier Shelf Expiration Date Model / Serial / Lot [employer] Coil Emolization Coated Detachable [employer] Embold [id number] - [id number] Implanted:Qty: 1 on 02/03/2024 at [facility] Embolization Coil [employer] [id number] 10/05/2026 [id number] / / [id number] [employer] Coil Emolization Coated Detachable [employer] Embold [id number] 0 - [id number] Implanted:Qty: 1 on 02/03/2024 at [facility] Embolization Coil [employer] [id number] 10/05/2026 [id number] / / [id number] [employer] Coil Emolization Coated Detachable Embold [id number] [employer] [id number] - [id number] Implanted:Qty: 1 on 02/03/2024 at [facility] Embolization Coil [employer] [id number] 10/27/2026 [id number] / / [id number] [employer] Coil Emolization Coated Detachable Embold [id number] [employer]ung[employer] [id number] - [id number] Implanted:Qty: 1 on 02/03/2024 at [facility] Embolization Coil [employer] [id number] 10/05/2026 [id number] / / [id number] [employer] Coil Emolization Coated Detachable [employer]ung[employer] Embold [id number] 0 - [id number] Implanted:Qty: 1 on 02/03/2024 at [facility] Embolization Coil [employer] [id number] 10/05/2026 [id number] / / [id number] [employer]osphere Prefill Saline Syringe Compressible Nonaggregate S420gh - [id number] Implanted:Qty: 1 on 02/03/2024 at [facility] Embolization Device [employer] 09/05/2026 [id number] / / [id number] Synthes Lcp 12mm [id number] .7mm 7 Hole Collar 1/3 Tubular Plate Bone 241.371 - [id number] Implanted:Qty: 1 on 02/07/2023 by Jackeline Russell MD at [facility] Plate Left: Leg Synthes I 241.371 / / Synthes Lcp 12mm 35g2p0sd .7mm 6 Hole Collar 1/3 Tubular Plate Bone 241.361 - [id number] Implanted:Qty: 1 on 02/07/2023 by Jackeline Russell MD at [facility] Plate Left: Leg Synthes I 241.361 / / Synthes 2.4mm 4mm 24mm Self Tap Self Retain St[employer]rive Low Profile Cortex 201.774 - [id number] Implanted:Qty: 1 on 02/07/2023 by Jackeline Russell MD at [facility] Screw Left: Leg Synthes I 201.774 / / Synthes 3.5mm 6mm 16mm 2.5mm Self Tap Small Hexagonal Socket Low Profile 204.816 - [id number] Implanted:Qty: 3 on 02/07/2023 by Jackeline Russell MD at [facility] Screw Left: Leg Synthes I 204.816 / / Synthes 3.5mm 6mm 22mm 2.5mm Self Tap Small Hexagonal Socket Low Profile 204.822 - [id number] Implanted:Qty: 1 on 02/07/2023 by Jackeline Russell MD at [facility] Screw Left: Leg Synthes I 204.822 / / Synthes 3.5mm 2.9mm 14mm Self Tap Lock [employer] Conical Head T15 Full 212.103 - [id number] Implanted:Qty: 1 on 02/07/2023 by Jackeline Russell MD at [facility] Screw Left: Leg Synthes I 212.103 / / Synthes 3.5mm 6mm 75mm 2.5mm Self Tap Small Hexagonal Socket Low Profile 204.875 - [id number] Implanted:Qty: 1 on 02/07/2023 by Jackeline Russell MD at [facility] Screw Left: Leg Synthes I 204.875 / / Synthes 3.5mm 2.9mm 18mm Self Tap Lock [employer] Conical Head T15 Full 212.105 - [id number] Implanted:Qty: 3 on 02/07/2023 by Jackeline Russell MD at [facility] Screw Left: Leg Synthes I 212.105 / / Synthes 3.5mm 2.9mm 20mm Self Tap Lock St[employer]rive Conical Head T15 Full 212.106 - [id number] Implanted:Qty: 1 on 02/07/2023 by Jackeline Russell MD at [facility] Screw Left: Leg Synthes I 212.106 / / [employer] Angio-Seal Vip 6fr Closere Device [id number] - [id number] Implanted:Qty: 1 on 02/03/2024 at [facility] Vascular Closure Device [employer] 05/23/2024 [id number] / / [id number] Explanted Type Area Property Clerk Device Identifier Shelf Expiration Date Model / Serial / Lot Vagus Nerve Stimulator- Implanted: by Arsenio Andre MD (Quantity not on file) Explanted:Qty : 1 on 04/30/2022 at [facility] Vagus Nerve Stimulator Left: Chest Wall #[id number] / #[id number] / Procedures Procedure Name Priority Date/Time Associated Diagnosis Comments EGFR Routine 08/06/2024 11:24 AM CDT CKD (chronic kidney disease) stage 4, GFR 15-29 ml/min (HCC) VITAMIN D 25 HYDROXY Routine 08/06/2024 11:24 AM CDT CKD (chronic kidney disease) stage 4, GFR 15-29 ml/min (HCC) PTH Routine 08/06/2024 11:24 AM CDT CKD (chronic kidney disease) stage 4, GFR 15-29 ml/min (HCC) CBC WITHOUT DIFFERENTIAL Routine 08/06/2024 11:24 AM CDT CKD (chronic kidney disease) stage 4, GFR 15-29 ml/min (HCC) RENAL FUNCTION PANEL Routine 08/06/2024 11:24 AM CDT CKD (chronic kidney disease) stage 4, GFR 15-29 ml/min (HCC) MRI ABDOMEN W WO CONTRAST Schedule Routine, Read Routine (OP Routine) 07/16/2024 11:[address] ADMINISTRATOR CKD (chronic kidney disease) stage 4, GFR 15-29 ml/min (HCC) Tuberous sclerosis (HCC) HEPATITIS C ANTIBODY Routine 12/22/2023 11:13 AM CDT Need for hepatitis C screening test from Last 3 Months or Most Recently Relevant to Health Maintenance Results * (ABNORMAL) eGFR (08/06/2024 11:24 AM CDT) eGFR 21(L) >=60 mL/min/1. 73 m2 Comment: Interpretive Data Reference Interval Normal >/= 90 mL/min/1.73m2 Mildly decreased* 60 - 89 mL/min/1.73m2 Mildly to moderately decreased 45 - 59 mL/min/1.73m2 Moderately to severely decreased 30 - 44 mL/min/1.73m2 Severely decreased 15 - 29 mL/min/1.73m2 Kidney Failure < 15 mL/min/1.73m2 *Relative to young adult level Estimated glomerular filtration rate is determined by the 2020 CKD-EPI equation recommended by the National Kidney Foundation (A Unifying Approach to GFR Estimation: Recommendations of the NKF-ASK Task Force on Reassessing the Inclusion of Race in Diagnosing Kidney Disease, JASN 2020). The CKD-EPI equation should not be used for patients with unstable renal function and has not been validated in children and those over 70. Current interpretive data was last reviewed 2021. Blood 08/06/2024 11:2 4 AM CDT 08/06/2024 1:48 PM CDT Jovan Gomez MD LAB BLOOD ORDERABLES Final Resu lt Performing Organization Address City/[facility]/ZIP Co de Phone Number CALIN SIMPSON (HAY) 1 [facility] [place] [address] * Vitamin D 25 hydroxy (08/06/2024 11:24 AM CDT) Pathologist [facility] Vitamin D 25-OH 40 30 - 80 ng/mL Blood 08/06/2024 11:2 4 AM CDT 08/06/2024 1:48 PM CDT Jovan Gomez MD LAB BLOOD ORDERABLES Final Resu lt Performing Organization Address City/[facility] de Phone Number CALIN SIMPSON (HAY) 1 [facility] [place] [address] * (ABNORMAL) CBC without differential (08/06/2024 11:24 AM CDT) Pathologist [facility] WBC 4.0 3.8 - 9.9 K/cumm Hgb 10.4(L) 13.0 - 17.5 g/dL [facility] ([place]) Hct 32.6(L) 38.9 - 50.3 % [facility] ([place]) Plt 199 150 - 400 K/cumm [facility] ([place]) MPV 12.8(H) 9.1 - 12.3 fL [facility] ([place]) RBC 3.33(L) 4.30 - 5.80 M/cumm [facility] ([place]) MCV 97.9(H) 81.3 - 96.4 fL [facility] ([place]) MCH 31.2 27.1 - 33.3 pg [facility] ([place]) MCHC 31.9(L) 32.3 - 35.7 g/dL [facility] ([place]) RDW CV 13.3 11.1 - 14.9 % [facility] ([place]) RDW SD 48.1 35.7 - 48.1 fL [facility] ([place]) NRBC abs 0.00 0.00 - 0.01 K/cumm [facility] ([place]) Blood 08/06/2024 11:2 4 AM CDT 08/06/2024 1:48 PM CDT Jovan Gomez MD LAB BLOOD ORDERABLES Final Resu lt [facility] ([place]) 1 [facility] [place] [address] * (ABNORMAL) PTH (08/06/2024 11:24 AM CDT) Pathologist [facility] PTH 333(H) 15 - 65 pg/mL Blood 08/06/2024 11:2 4 AM CDT 08/06/2024 1:48 PM CDT Jovan Gomez MD LAB BLOOD ORDERABLES Final Resu lt [facility] ([place]) 1 [facility] [place] [address] * (ABNORMAL) Renal function panel (08/06/2024 11:24 AM CDT) Sodium 141 135 - 145 mmol/L Potassium, pl 4.7 3.3 - 4.9 mmol/L [facility] Chloride 105 97 - 110 mmol/L [facility] CO2 20(L) 22 - 32 mmol/L [facility] Anion gap 16(H) 2 - 15 mmol/L [facility] BUN 50(H) 6 - 25 mg/dL [facility] Creatinine 3.90(H) 0.80 - 1.30 mg/dL [facility] Glucose 92 70 - 199 mg/dL [facility] ([place]) Comment: Interpretive Data Fasting glucose >/= 126 mg/dl is diagnostic for diabetes. Fasting is defined as no caloric intake for at least 8 hours. Fasting glucose between 100 mg/dl to 125 mg/dl is diagnostic of prediabetes. In a patient with classic symptoms of hyperglycemia or hyperglycemic crisis, a random glucose >/= 200 mg/dl is diagnostic for diabetes. In the absence of unequivocal hyperglycemia, results should be confirmed by repeat testing. The classification and Diagnosis of Diabetes Diabetes Care 202; 46: S19-S40. Current interpretive data was last revised 2022. Calcium 9.6 8.5 - 10.3 mg/dL [facility] ([place]) Phosphorus, pl 3.7 2.3 - 4.5 mg/dL [facility] ([place]) Albumin 4.5 3.5 - 5.0 g/dL [facility] ([place]) Blood 08/06/2024 11:2 4 AM CDT 08/06/2024 1:48 PM CDT us Jovan Gomez MD LAB BLOOD ORDERABLES Final Resu lt [facility] 1 [facility] Department [place] [address] * MRI Abdomen W WO Contrast (07/16/2024 11:[address] ADMINISTRATOR) Anatomical Region Laterality Modality Body N/A Magnetic Resonan ce 07/16/2024 1:[address] ADMINISTRATOR Impressions 07/16/2024 1:[address] ADMINISTRATOR 1. Interval embolization of angiomyolipoma in the upper pole the right kidney, which appears similar to slightly decreased in size. Mild central enhancement surrounding the macroscopic fat is consistent with residual viable tumor. 2. No new suspicious mass identified. Dictated by: Anders Edward MD The radiology attending physician has personally reviewed this study, and had reviewed and/or edited this written report and agrees with it. Electronically signed by: Yousif Mata MD Narrative 07/16/2024 1:[address] ADMINISTRATOR EXAMINATION: MRI ABDOMEN W WO CONTRAST HISTORY: 28-year-old male with tuberous sclerosis and multiple renal angiomyolipomas status post embolization of the right upper pole on 02/03/2024 who presents for follow-up evaluation. TECHNIQUE: Magnetic resonance imaging (MRI) of the abdomen was performed prior to and following intravenous administration of gadolinium contrast. Protocol: Liver nodule Contrast: Dotarem 15 mL COMPARISON: CT 11/12/2023. FINDINGS: Liver: Normal morphology. Focal lesions: None Bile ducts: No intra or extrahepatic biliary dilation. Vasculature: The portal and hepatic veins are patent. Gallbladder: Normal. No cholelithiasis. Pancreas: Normal. Spleen: Normal. Adrenals: Normal. Kidneys: In the superior pole the right kidney, there is a 7.1 x 6.2 cm x 4.1 renal mass with central fat, consistent with known angiomyolipoma, which appears similar to slightly decreased in size from CT 10/23/2023. The mass surrounding the central fat demonstrates intrinsic T1 hyperintensity and T2 hyperintensity, likely representing evolving blood products following embolization. There is mild residual enhancement centrally surrounding the macroscopic fat (best seen on subtraction series 17). There are numerous additional simple cysts scattered throughout both kidneys without suspicious features. Other Findings: Small fat-containing umbilical hernia. Procedure Note Yousif Mata MD - 07/16/2024 EXAMINATION: MRI ABDOMEN W WO CONTRAST HISTORY: 28-year-old male with tuberous sclerosis and multiple renal angiomyolipomas status post embolization of the right upper pole on 02/03/2024 who presents for follow-up evaluation. TECHNIQUE: Magnetic resonance imaging (MRI) of the abdomen was performed prior to and following intravenous administration of gadolinium contrast. Protocol: Liver nodule Contrast: Dotarem 15 mL COMPARISON: CT 11/12/2023. FINDINGS: Liver: Normal morphology. Focal lesions: None Bile ducts: No intra or extrahepatic biliary dilation. Vasculature: The portal and hepatic veins are patent. Gallbladder: Normal. No cholelithiasis. Pancreas: Normal. Spleen: Normal. Adrenals: Normal. Kidneys: In the superior pole the right kidney, there is a 7.1 x 6.2 cm x 4.1 renal mass with central fat, consistent with known angiomyolipoma, which appears similar to slightly decreased in size from CT 10/23/2023. The mass surrounding the central fat demonstrates intrinsic T1 hyperintensity and T2 hyperintensity, likely representing evolving blood products following embolization. There is mild residual enhancement centrally surrounding the macroscopic fat (best seen on subtraction series 17). There are numerous additional simple cysts scattered throughout both kidneys without suspicious features. Other Findings: Small fat-containing umbilical hernia. IMPRESSION: 1. Interval embolization of angiomyolipoma in the upper pole the right kidney, which appears similar to slightly decreased in size. Mild central enhancement surrounding the macroscopic fat is consistent with residual viable tumor. 2. No new suspicious mass identified. Dictated by: Anders Edward MD The radiology attending physician has personally reviewed this study, and had reviewed and/or edited this written report and agrees with it. Electronically signed by: Yousif Mata MD us Jovan Gomez MD IMG MRI PROCEDURES Final Result * Hepatitis C antibody Blood (12/22/2023 11:13 AM CDT) Hep C Ab Nonreactive Nonreactive Comment: Interpretive Data Nonreactive: Antibodies to HCV not detected. Does NOT exclude the possibility of recent exposure to HCV. Equivocal: Equivocal for HCV antibodies. Supplemental molecular testing will be automatically performed to determine infection status in accordance with current CDC screening recommendations. Reactive: Positive for HCV antibodies. This may represent current or past HCV infection. Supplemental molecular testing will be automatically performed to determine current infection status in accordance with current CDC screening recommendations. Interpretive data was last revised on 2019. Testing performed by: [facility], [address] [place] [address]., [id number] Blood 12/22/2023 11:1 3 AM CDT 12/22/2023 3:15 PM CDT us Nilton [facility] MICROBIOLOGY - GENE RAL ORDERABLES Edited Result - Final [facility] ([place]) [facility] [place] [address] from Last 3 Months or Most Recently Relevant to Health Maintenance Insurance [facility] [id number] [employer] MEDICARE [facility] [id number] MEDICARE [facility] [id number] Member Subscriber Plan / Payer (Ef fective 2019-Present) Name:Agnieszka Rolo Anupam Member ID:[id number] Relation to Subscriber:Child Name:JOHN GUTIERREZ Subscriber ID:[id number] Date of :1971 (Home) Address: [address] [place] [id number] Payer ID:[id number] Type:[employer] HMO/PPO Address: [address] [place] [address] [facility] MEDICARE IDPA [facility] [id number] [facility] [id number] IDPA [facility] [id number] [facility] MEDICARE [facility] Address: [address] [address] [place] [address] IDPA [employer] IDPA IDPA IDPA [facility] [id number] [facility] [id number] Advance Directives For more information, please contact: [phone] Documents on File Type Date Recorded 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 Advance Directives and Livin g Will 04/30/2022 8:41 AM ADVANCE DIRECTIVE 08/31/2021 9:47 AM ADVANCE DIRECTIVE 04/27/2019 2:11 PM ADVANCE DIRECTIVE 03/28/2019 2:55 PM ADVANCE DIRECTIVE 02/03/2018 12:41 PM ADVANCE DIRECTIVE 12/15/2017 8:21 AM * Full Code (Latest Code Status on File) Date Activated Date Inactivated Comments 02/03/2024 10:46 AM 02/04/2024 5:26 PM * Full Code Date Activated Date Inactivated Comments 02/03/2024 9:57 AM 02/03/2024 10:46 AM * Full Code Date Activated Date Inactivated Comments 11/12/2023 1:25 PM 11/14/2023 8:00 PM * Full Code Date Activated Date Inactivated Comments 10/22/2023 3:12 PM 10/26/2023 3:03 PM * Full Code Date Activated Date Inactivated Comments 08/31/2021 9:47 AM 09/02/2021 5:01 PM Care Teams Bisque Tile Burner Relationship Specialty Start Date End Date Nilton Jacob PA [address] [place] [address] [address] [place] [address] PCP - General Internal Medicine 01/14/22 Wilson Kearns MD [address] [place] [address] Consulting Physician Neurosurgery 04/30/22 Jovan Gomez MD [address] [place] [address] Referring Physician Transplant 11/10/23 Valentin Peoples MD PhD [address] [place] [address] Referring Physician Neuro Spec Qual Child Neurology 11/10/23 Prabhu Ferraro MD [address] [place] [address] Consulting Physician Infectious Diseases 11/14/23
--- OUTSIDE RECORDS SUMMARY | 2024-08-10 18:58 | XMS_ITS | Encounter Summary ---
Author Organization [facility] Healthcare Address [address] [place] [address] Care Team Providers Care Psych Specialist Name Role Phone Helen Beltran MD Primary Care Pro vider Josias Beltran MD Primary Care Provi sadie Nilton Jacob Primary Care Provider Katlin Sanchez RN Unavailable [phone] Wilson Kearns MD Unavailable [phone] Jerome Guy RN Unavailable [phone] Jovan Gomez MD Unavailable [phone] Valentin Peoples MD PhD Unavailable Ana Solis MA Unavailable [phone] Jerome Guy RN Unavailable [phone] Prabhu Ferraro MD Unavailable [phone] Encounter Details Date Type Department Care Team (Late st Contact Info) Description 02/18/2020 Telephone [facility] [place] [address] Jannet Hercules, FLO Social History Tobacco Use Types Packs/Day Years Used Date Smoking Tobacco: Never Smokeless Tobacco: Never Alcohol Use Standard Drinks/Week Comments Yes 0 (1 standard drink = 0.6 oz pur e alcohol) Sex and Gender Information Value Date Recorded Sex Assigned at Not on file 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 Gender Identity Male 02/01/2021 1:20 PM CDT Sexual Orientation Straight 02/01/2021 1: 20 PM CDT documented as of this encounter Plan of Treatment Not on [...] documented as of this encounter Care Teams Psych Specialist Relationship Specialty Start Date End Date Helen Beltran MD PCP - General 11/15/07 09/07/20 Josias Beltran MD PCP - General Internal Medicine 09/08/20 01/13/22 Nilton Jacob PA 2 [facility] [address] [place] [address] PCP - General Internal Medicine 01/14/22 Katlin Sanchez RN [address] [facility] [address] [place] [address] Manager Leadership Development 12/22/2103/11 Wilson Kearns MD [address] [place] [address] Consulting Physician Neurosurgery 04/30/22 Jerome Guy RN [address] [facility] [address] [place] [address] Hand Grinder 10/07/23 11/09/23 Jovan Gomez MD [address] [facility] [address] [place] [address] Referring Physician Transplant 11/10/23 Valentin Peoples MD PhD [address] [place] [address] Referring Physician Neuro Spec Qual Child Neurology 11/10/23 Ana Solis MA [address] [place] [address] [address] [place] [address] ACO Care Vice President Network Development 11/11/23 11/13/23 Jerome Guy RN [address] [place] [address] [address] [place] [address] Hand Grinder 11/14/23 11/27/23 Prabhu Ferraro MD [address] [facility] [address] [place] [address] Consulting Physician Infectious Diseases 11/14/23 documented as of this encounter
--- OUTSIDE RECORDS SUMMARY | 2024-08-10 18:58 | XMS_ITS | Encounter Summary ---
Author Organization [facility] Address [address] [place] [address] Phone Care Team Providers Care Certified Personal Chef Name Role Phone Helen Beltran MD Primary Care Pro vider Josias Beltran MD Primary Care Provi sadie Nilton Jacob Primary Care Provider Katlin Sanchez RN Unavailable Wilson Kearns MD Unavailable Jerome Guy RN Unavailable [phone] Jovan Gomez MD Unavailable [phone] Valentin Peoples MD PhD Unavailable Ana Solis MA Unavailable [phone] Jerome Guy RN Unavailable [phone] Prabhu Ferraro MD Unavailable [phone] Encounter Details Date Type Department Care Team (Late st Contact Info) Description 04/05/2019 Ophth Exam [facility] Ophthalmology [address] [place] [address] 1[address] [place] [id number] Padma Burns MD [address] [place] [address] Social History Tobacco Use Types Packs/Day Years Used Date Smoking Tobacco: Never Smokeless Tobacco: Never Sex and Gender Information Value Date Recorded Sex Assigned at Not on file 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 difficile suspected 10/21/2023 10/21/202310/21 3:07 AM CDT COVID: Suspected 10/21/2023 10/21/2023 10/21/2023 6:31 PM CDT C. difficile 10/21/2023 11/12/2023 02/03/2024 11:2 6 AM CDT C. difficile suspected 11/12/2023 11/12/202311/11 9:35 PM CDT documented as of this encounter Eye Exam Visual Acuity (Snellen - Linear) Right eye Left eye Dist sc FF FF Patient fixes and follows well. 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 But per last story teller note in 2018, patient had 20/20 vision both eyes (OU) with pictographtesting. Tonometry (Tonopen, 11:18 AM) Right eye Left eye Pressure 17 18 Pupils Dark Light React APD Right eye 4.5 2 Brisk None Left eye 4.5 2 Brisk None Visual Lechuga Unable due to patient's mental development. Extraocular Movement Right eye Left eye Full Full Dilation Both eyes: 1.0% Mydriacyl, 2 .5% Phenylephrine @ 11:18 AM External Exam Right eye Left eye External Normal Normal Tuberous nodules over nose and cheeks Slit Lamp Exam Right eye Left eye Lids/Lashes Normal Normal Conjunctiva/Sclera White and quiet White and gosia et Cornea Clear Clear Anterior Chamber Deep and quiet Deep and quiet Iris Round and reactive Round and cahna ctive Lens Clear Clear Vitreous Normal. No vitritis Normal. No v itritis Fundus Exam Right eye Left eye Disc Normal Normal C/D Ratio 0.35 0.35 Macula 2 grayish elevated r etinal lesions along inferior arcade vessel. One small lesion in far nasal periphery. 2 discrete white retinal lesions nasal to nerve. 1 old retinal lesion superotemporal to nerve. 1 flat lesion along peripheral superotemporal arcades. Vessels Normal Normal Periphery Normal Normal Care Teams Certified Personal Chef Relationship Specialty Start Date End Date Helen Beltran MD PCP - General 11/15/07 09/07/20 Josias Beltran MD PCP - General Internal Medicine 09/08/20 01/13/22 Nilton Jacob PA 2 [facility] [address] [place] [address] PCP - General Internal Medicine 01/14/22 Katlin Sanchez RN [address] [facility] [address] [place] [address] Clinical Documentation Developer 12/22/2103/11 Wilson Kearns MD [address] [place] [address] Consulting Physician Neurosurgery 04/30/22 Jerome Guy RN [address] [facility] [address] [place] [address] Maintenance Worker 10/07/23 11/09/23 Jovan Gomez MD [address] [facility] [address] [place] [address] Referring Physician Transplant 11/10/23 Valentin Peoples MD PhD [address] [place] [address] Referring Physician Neuro Spec Qual Child Neurology 11/10/23 Ana Solis MA [address] [place] [address] [address] [place] [address] ACO Care Stereo Operator 11/11/23 11/13/23 Jerome Guy RN [address] [place] [address] [address] [place] [address] Maintenance Worker 11/14/23 11/27/23 Prabhu Ferraro MD [address] [place] [address] [address] [place] [address] Consulting Physician Infectious Diseases 11/14/23 documented as of this encounter
--- OUTSIDE RECORDS SUMMARY | 2024-08-10 18:58 | XMS_ITS ---
Author Organization Unknown Medications Medication Instructions Effective Dates (start - stop) Status {14 (cenobamate 100 MG Oral Tablet [Xcopri]) / 14 (cenobamate 50 MG Oral Tablet [Xcopri]) } Pack [Xcopri Titration Pack - 50 MG (14), 100 MG (14) 28 Count] - Completed metronidazole 500 MG Oral Tablet 00:00:00Z - Completed - - Compl eted - - Compl eted acetaminophen 325 MG / hydro codone bitartrate 5 MG Oral Tablet - Completed - - Compl eted acetaminophen 325 MG / oxyco done hydrochloride 5 MG Oral Tablet - Comple karel cenobamate 200 MG Oral Table t [Xcopri] - Completed clobazam 10 MG Oral Tablet [id number]: 00:00Z - Completed cannabidiol 100 MG/ML Oral Solution [Epidiolex] - Completed clobazam 10 MG Oral Tablet [id number]: 00:00Z - Completed cannabidiol 100 MG/ML Oral Solution [Epidiolex] - Completed clobazam 10 MG Oral Tablet [id number]: 00:00Z - Completed clonazepam 0.5 MG Disintegra ting Oral Tablet - Completed cannabidiol 100 MG/ML Oral Solution [Epidiolex] - Completed cannabidiol 100 MG/ML Oral Solution [Epidiolex] - Completed - - Compl eted {2 (0.1 ML) (diazepam 75 MG/ ML Nasal [place] [Valtoco]) } Pack [Valtoco 15 MG Dose Kit] - Completed - - Compl eted ciprofloxacin 500 MG Oral Tablet 00:00:00Z - Completed cannabidiol 100 MG/ML Oral Solution [Epidiolex] - Completed ciprofloxacin 3 MG/ML / dexamethasone 1 MG/ML Otic Suspension - Completed - - Compl eted ondansetron 4 MG Disintegrat ing Oral Tablet - Completed fidaxomicin 200 MG Oral Tabl et [Dificid] - Completed - - Compl eted ondansetron 4 MG Disintegrat ing Oral Tablet - Completed acetaminophen 325 MG / hydro codone bitartrate 5 MG Oral Tablet - Completed ciprofloxacin 3 MG/ML / dexamethasone 1 MG/ML Otic Suspension - Completed clobazam 10 MG Oral Tablet [id number]: 00:00Z - Completed amlodipine 10 MG Oral Tablet [id number] 0:00:00Z - Completed - - Compl eted clobazam 10 MG Oral Tablet [id number]: 00:00Z - Completed fidaxomicin 200 MG Oral Tabl et [Dificid] - Completed vitamin B12 1 MG Sublingual Tablet 00:00:00Z - Completed cannabidiol 100 MG/ML Oral Solution [Epidiolex] - Completed - - Compl eted cenobamate 200 MG Oral Table t [Xcopri] - Completed clobazam 10 MG Oral Tablet [id number]: 00:00Z - Completed ciprofloxacin 3 MG/ML / dexamethasone 1 MG/ML Otic Suspension - Completed - - Compl eted - - Compl eted amlodipine 10 MG Oral Tablet [id number] 0:00:00Z - Completed clobazam 10 MG Oral Tablet [id number]: 00:00Z - Completed {14 (cenobamate 150 MG Oral Tablet [Xcopri]) / 14 (cenobamate 200 MG Oral Tablet [Xcopri]) } Pack [Xcopri Titration Pack - 150 MG (14), 200 MG (14) 28 Count] - Completed amlodipine 10 MG Oral Tablet [id number] 0:00:00Z - Completed {14 (cenobamate 12.5 MG Oral Tablet [Xcopri]) / 14 (cenobamate 25 MG Oral Tablet [Xcopri]) } Pack [Xcopri Titration Pack - 12.5 MG (14), 25 MG (14) 28 Count] - Completed - - Compl eted amlodipine 10 MG Oral Tablet [id number] 0:00:00Z - Completed fidaxomicin 200 MG Oral Tabl et [Dificid] - Completed clobazam 10 MG Oral Tablet [id number]: 00:00Z - Completed clobazam 10 MG Oral Tablet [id number]: 00:00Z - Completed - - Compl eted cannabidiol 100 MG/ML Oral Solution [Epidiolex] - Completed cannabidiol 100 MG/ML Oral Solution [Epidiolex] - Completed cannabidiol 100 MG/ML Oral Solution [Epidiolex] - Completed cenobamate 150 MG Oral Table t [Xcopri] - Completed clobazam 10 MG Oral Tablet [id number]: 00:00Z - Completed cenobamate 200 MG Oral Table t [Xcopri] - Completed cannabidiol 100 MG/ML Oral Solution [Epidiolex] - Completed cannabidiol 100 MG/ML Oral Solution [Epidiolex] - Completed cannabidiol 100 MG/ML Oral Solution [Epidiolex] - Completed fidaxomicin 200 MG Oral Tabl et [Dificid] - Completed clobazam 10 MG Oral Tablet [id number]: 00:00Z - Completed famotidine 20 MG Oral Tablet [id number] 0:00:00Z - Completed cannabidiol 100 MG/ML Oral Solution [Epidiolex] - Completed clobazam 10 MG Oral Tablet [id number]: 00:00Z - Completed clobazam 10 MG Oral Tablet [id number]: 00:00Z - Completed ondansetron 4 MG Disintegrat ing Oral Tablet - Completed cenobamate 150 MG Oral Table t [Xcopri] - Completed cannabidiol 100 MG/ML Oral Solution [Epidiolex] - Completed cenobamate 150 MG Oral Table t [Xcopri] - Completed - - Compl eted cannabidiol 100 MG/ML Oral Solution [Epidiolex] - Completed fidaxomicin 200 MG Oral Tabl et [Dificid] - Completed cannabidiol 100 MG/ML Oral Solution [Epidiolex] - Completed Patient Care team information Name Category Status Period Participants - - Proposed period not known -
--- OUTSIDE RECORDS SUMMARY | 2024-08-10 18:58 | XMS_ITS | Clinical Summary ---
Author Organization [facility] o[facility] Address [address] [place] [address] Care Team Providers Care Customer Success Specialist Name Role Phone NidiaNilton SYDNEE Primary Care Provider Wilson Kearns MD Unavailable [phone] Jovan Gomez MD Unavailable [phone] Valentin Peoples MD PhD Unavailable [phone] Prabhu Ferraro MD Unavailable [phone] Allergies Active Allergy Reactions Criticality Noted Date [...] Active ergocalciferol (VITAMIN D) 50,000 unit capsule 93727 units weekly for 12 weeks, then monthly [...] 7 days of cipro and metronidazole prescribed. [place] diet. Liquids and advance as tolerated. Diarrhea [...] 04/07/2019 Assessment & Plan (04/10/2019 10:22 AM NUCLEAR CRITICALITY SAFETY ENGINEER): Rolo was started on zoloft about 6 [...] agreement. Assessment & Plan (04/09/2019 1:56 PM NUCLEAR CRITICALITY SAFETY ENGINEER): Rolo was started on zoloft about 6 [...] agreement. Assessment & Plan (04/08/2019 5:25 PM NUCLEAR CRITICALITY SAFETY ENGINEER): Rolo was started on zoloft about 6 [...] agreement. Assessment & Plan (04/07/2019 5:22 PM NUCLEAR CRITICALITY SAFETY ENGINEER): Rolo was started on zoloft about 6 [...] agreement. Assessment & Plan (04/07/2019 3:54 PM NUCLEAR CRITICALITY SAFETY ENGINEER): Rolo was started on zoloft about 6 [...] 04/07/2019 Assessment & Plan (04/10/2019 10:20 AM NUCLEAR CRITICALITY SAFETY ENGINEER): Brain MRI revealed new globus calcifications. Ophthalmology was consulted and will discuss findings with his outpatient accounts payable coordinator at [facility]. Plan: - Continue to follow with Ophthalmology Assessment & Plan (04/09/2019 1:53 PM NUCLEAR CRITICALITY SAFETY ENGINEER): Brain MRI revealed new globus calcifications. Ophthalmology was consulted and will discuss findings with his outpatient accounts payable coordinator at [facility]. Plan: - Continue to follow with Ophthalmology Assessment & Plan (04/08/2019 5:24 PM NUCLEAR CRITICALITY SAFETY ENGINEER): Brain MRI revealed new globus calcifications. Ophthalmology was consulted and will discuss findings with his outpatient accounts payable coordinator at [facility]. Plan: - Continue to follow with Ophthalmology Assessment & Plan (04/07/2019 3:58 PM NUCLEAR CRITICALITY SAFETY ENGINEER): Brain MRI revealed new globus calcifications. Ophthalmology was consulted and will discuss findings with his outpatient accounts payable coordinator at [facility]. Plan: - Continue to follow with Ophthalmology Feeding difficulties 04/07/2019 Assessment & Plan (04/19/2019 1:12 AM NUCLEAR CRITICALITY SAFETY ENGINEER): At baseline, Rolo is able to eat [...] speech Assessment & Plan (04/19/2019 12:40 AM NUCLEAR CRITICALITY SAFETY ENGINEER): At baseline, Rolo is able to eat [...] speech Assessment & Plan (04/10/2019 10:20 AM NUCLEAR CRITICALITY SAFETY ENGINEER): NG feeds were started and achieved goal [...] need for thickened liquids, but will have TOP AND SEAT COVER FITTER reevaluate for progression. His NG came out [...] diet, nectar thick liquids this afternoon - TOP AND SEAT COVER FITTER following - Continue home iron, vit D Assessment & Plan (04/09/2019 1:53 PM NUCLEAR CRITICALITY SAFETY ENGINEER): NG feeds were started and achieved goal [...] need for thickened liquids, but will have TOP AND SEAT COVER FITTER reevaluate for progression. His NG came out yesterday but he had been eating well without it. Currently NPO for MRI. Plan: - NPO until MRI - Calorie counts, will need to replace NG if not adequate - Previously on Osmolite 1.0 90 ml/hr 20:00-06:00, bolus 260 ml x1 hour at 0900, 1300, 1700 for tube feeds, pureed diet, nectar thick liquids - TOP AND SEAT COVER FITTER following - Continue home iron, vit D Assessment & Plan (04/08/2019 5:24 PM NUCLEAR CRITICALITY SAFETY ENGINEER): NG feeds were started and achieved goal [...] need for thickened liquids, but will have TOP AND SEAT COVER FITTER reevaluate for progression. His NG came out overnight but he has been eating well this AM. Plan: - Will leave diet to PO, can replace NG if not taking adequate amounts - Calorie counts - Previously on Osmolite 1.0 90 ml/hr 20:00-06:00, bolus 260 ml x1 hour at 0900, 1300, 1700 for tube feeds - Pureed diet, nectar thick liquids - TOP AND SEAT COVER FITTER reevaluation - Continue home iron, vit D - Will be NPO overnight for MRI tomorrow Assessment & Plan (04/07/2019 5:23 PM NUCLEAR CRITICALITY SAFETY ENGINEER): NG feeds were started and achieved goal [...] need for thickened liquids, but will have TOP AND SEAT COVER FITTER reevaluate for progression. Plan: - Continue Osmolite 1.0 90 ml/hr 20:00-06:00, bolus 260 ml x1 hour at 0900, 1300, 1700, will continue to introduce pureed foods as tolerated - Pureed diet, [place] Thick liquids - TOP AND SEAT COVER FITTER reevaluation - Continue home iron, vit D Assessment & Plan (04/07/2019 4:05 PM NUCLEAR CRITICALITY SAFETY ENGINEER): NG feeds were started and achieved goal [...] vit D - Continue to follow with TOP AND SEAT COVER FITTER History of seizures with Status epilepticus ([facility] /HCC) 03/26/2019 Assessment & Plan (09/11/2021 11:09 AM CDT): Neuro monitored withped neuro for the time Assessment & Plan (05/06/2019 10:54 AM NUCLEAR CRITICALITY SAFETY ENGINEER): See A&P for Tuberous sclerosus Hypotension 03/26/2019 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 10/11/2017 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 Assessment & Plan (05/06/2019 10:53 AM NUCLEAR CRITICALITY SAFETY ENGINEER): See A&P for MATTEO Assessment & Plan (05/05/2019 10:28 AM NUCLEAR CRITICALITY SAFETY ENGINEER): See A&P for MATTEO Assessment & Plan (04/28/2019 1:07 PM NUCLEAR CRITICALITY SAFETY ENGINEER): See A&P for MATTEO Assessment & Plan (04/27/2019 6:33 AM NUCLEAR CRITICALITY SAFETY ENGINEER): See A&P for MATTEO Global developmental delay [...] 05/28/2007 Assessment & Plan (04/19/2019 1:12 AM NUCLEAR CRITICALITY SAFETY ENGINEER): At baseline, Rolo has a seizure with [...] precautions Assessment & Plan (04/19/2019 12:31 AM NUCLEAR CRITICALITY SAFETY ENGINEER): At baseline, Rolo has a seizure with [...] precautions Assessment & Plan (04/10/2019 10:19 AM NUCLEAR CRITICALITY SAFETY ENGINEER): Rolo is a 23 yo M with [...] PT/OT/ST Assessment & Plan (04/09/2019 1:49 PM NUCLEAR CRITICALITY SAFETY ENGINEER): Rolo is a 23 yo M with [...] PT/OT/ST Assessment & Plan (04/08/2019 5:22 PM NUCLEAR CRITICALITY SAFETY ENGINEER): Rolo is a 23 yo M with [...] PT/OT/ST Assessment & Plan (04/07/2019 5:21 PM NUCLEAR CRITICALITY SAFETY ENGINEER): Rolo is a 23 yo M with [...] PT/OT/ST Assessment & Plan (04/07/2019 4:05 PM NUCLEAR CRITICALITY SAFETY ENGINEER): Rolo is a 23 yo M with [...] PT/OT Assessment & Plan (04/06/2019 6:51 AM NUCLEAR CRITICALITY SAFETY ENGINEER): - Continue depakote, lincosamide, Onfi, and epidiolex - Consider increasing depakote if increasing clustering of seizures or worsening mental status - Consider ammonia level, adding carnitine if mental status is worsening 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 male [...] precautions Assessment & Plan (05/05/2019 10:28 AM NUCLEAR CRITICALITY SAFETY ENGINEER): Rolo Bermeo is a 23 y.o. male [...] precautions Assessment & Plan (04/28/2019 1:07 PM NUCLEAR CRITICALITY SAFETY ENGINEER): Rolo Bermeo is a 23 y.o. male [...] precautions Assessment & Plan (04/27/2019 6:00 AM NUCLEAR CRITICALITY SAFETY ENGINEER): Rolo Bermeo is a 23 y.o. male [...] fistula 10/02/202310/16 End stage renal disease 02/23/2023 0607/2023 Lymphadenopathy, axillary 06/14/2022 Assessment & Plan (06/14/2022 5:08 PM NUCLEAR CRITICALITY SAFETY ENGINEER): Likely the result of his recent vagus [...] 11/10/2023 Assessment & Plan (05/06/2019 10:54 AM NUCLEAR CRITICALITY SAFETY ENGINEER): Rolo Bermeo is a 23 y.o. male [...] fibrinogen Assessment & Plan (05/05/2019 10:28 AM NUCLEAR CRITICALITY SAFETY ENGINEER): Rolo Bermeo is a 23 y.o. male [...] fibrinogen Assessment & Plan (04/28/2019 1:08 PM NUCLEAR CRITICALITY SAFETY ENGINEER): Rolo Bermeo is a 23 y.o. male [...] fibrinogen Assessment & Plan (04/27/2019 6:39 AM NUCLEAR CRITICALITY SAFETY ENGINEER): Rolo Bermeo is a 23 y.o. male [...] 09/16/2022 Assessment & Plan (05/06/2019 10:54 AM NUCLEAR CRITICALITY SAFETY ENGINEER): Rolo Bermeo is a 23 y.o. male [...] TS Assessment & Plan (05/05/2019 10:28 AM NUCLEAR CRITICALITY SAFETY ENGINEER): Rolo Bermeo is a 23 y.o. male [...] TS Assessment & Plan (04/28/2019 1:08 PM NUCLEAR CRITICALITY SAFETY ENGINEER): Rolo Bermeo is a 23 y.o. male [...] TS Assessment & Plan (04/27/2019 6:32 AM NUCLEAR CRITICALITY SAFETY ENGINEER): Rolo Bermeo is a 23 y.o. male [...] TS Assessment & Plan (04/19/2019 1:12 AM NUCLEAR CRITICALITY SAFETY ENGINEER): Rolo is a 23 year old man [...] PT/OT Assessment & Plan (04/19/2019 12:31 AM NUCLEAR CRITICALITY SAFETY ENGINEER): Rolo is a 23 year old man [...] AM - PT/OT MATTEO (acute kidney injury) ([facility]) 04/18/2019 09/15/2022 Assessment & Plan (05/06/2019 10:54 AM NUCLEAR CRITICALITY SAFETY ENGINEER): Rolo Bermeo is a 23 y.o. male [...] iron Assessment & Plan (05/05/2019 10:28 AM NUCLEAR CRITICALITY SAFETY ENGINEER): Rolo Bermeo is a 23 y.o. male [...] CK Assessment & Plan (04/28/2019 1:08 PM NUCLEAR CRITICALITY SAFETY ENGINEER): Rolo Bermeo is a 23 y.o. male [...] CK Assessment & Plan (04/27/2019 6:24 AM NUCLEAR CRITICALITY SAFETY ENGINEER): Rolo Bermeo is a 23 y.o. male [...] CK Assessment & Plan (04/19/2019 1:12 AM NUCLEAR CRITICALITY SAFETY ENGINEER): On admission patient has elevated creatinine compared to at discharge on week ago. Furthermore, he has had poor PO intake for the last week. MATTEO likely is secondary to dehydration. Will initiate IV rehydration therapy and monitor urine output. - 1000mL NSB - mIVF - strict I/O - repeat RFP in AM Assessment & Plan (04/19/2019 12:35 AM NUCLEAR CRITICALITY SAFETY ENGINEER): On admission patient has elevated creatinine compared [...] 09/11/2021 Assessment & Plan (04/10/2019 10:22 AM NUCLEAR CRITICALITY SAFETY ENGINEER): On 03/29, he was febrile, had a [...] today Assessment & Plan (04/09/2019 1:57 PM NUCLEAR CRITICALITY SAFETY ENGINEER): On 03/29, he was febrile, had a [...] daily Assessment & Plan (04/08/2019 5:25 PM NUCLEAR CRITICALITY SAFETY ENGINEER): On 03/29, he was febrile, had a [...] tomorrow Assessment & Plan (04/07/2019 5:22 PM NUCLEAR CRITICALITY SAFETY ENGINEER): On 03/29, he was febrile, had a [...] BID Assessment & Plan (04/07/2019 4:08 PM NUCLEAR CRITICALITY SAFETY ENGINEER): On 03/29, he was febrile, had a [...] 09/11/2021 Assessment & Plan (05/06/2019 10:53 AM NUCLEAR CRITICALITY SAFETY ENGINEER): See A&P for MATTEO Assessment & Plan (05/05/2019 10:27 AM NUCLEAR CRITICALITY SAFETY ENGINEER): See A&P for MATTEO Assessment & Plan (04/28/2019 1:08 PM NUCLEAR CRITICALITY SAFETY ENGINEER): See A&P for MATTEO Assessment & Plan (04/27/2019 6:34 AM NUCLEAR CRITICALITY SAFETY ENGINEER): See A&P for MATTEO Assessment & Plan (04/19/2019 1:18 AM NUCLEAR CRITICALITY SAFETY ENGINEER): Rolo has stage II CKD complicated by HTN. 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 His blood pressures have been adequately controlled on regimen of amlodipine 10mg daily for several years. Follows with [facility] nephrology annually. - continue amlodipine 10mg daily - q4hr VS Assessment & Plan (04/10/2019 10:17 AM NUCLEAR CRITICALITY SAFETY ENGINEER): Most recent Cr 1.65, baseline appears to be similar, though there is only one value from the year prior to admission in our system. Also noted to have anemia with most recent hgb of 9.1 (04/08), 8.8 on admission. Platelets were 99 when last checked 04/08. Plan: - Continue to monitor Assessment & Plan (04/09/2019 10:39 AM NUCLEAR CRITICALITY SAFETY ENGINEER): Most recent Cr 1.65, baseline appears to be similar, though there is only one value from the year prior to admission in our system. Also noted to have anemia with most recent hgb of 9.1 (04/08), 8.8 on admission. Platelets were 99 when last checked 04/08. Plan: - Continue to monitor Assessment & Plan (04/08/2019 5:18 PM NUCLEAR CRITICALITY SAFETY ENGINEER): Most recent Cr 1.87, baseline appears to be similar, though there is only one value from the year prior to admission in our system. Also noted to have anemia with most recent hgb of 7.4 (04/02), 8.8 on admission. Plan: - Continue to monitor Assessment & Plan (04/07/2019 4:13 PM NUCLEAR CRITICALITY SAFETY ENGINEER): Most recent Cr 1.87, baseline appears to [...] 09/15/2022 Assessment & Plan (06/14/2022 5:07 PM NUCLEAR CRITICALITY SAFETY ENGINEER): Probably due to the everolimus and his mother states improvement since discontinuation. Recommended further observation. If does not fully resolve may need EGD to rule out stricture. Okay to try Pepcid 20 mg daily as well Fracture of foot 12/10/2011 2017 Pain of foot 11/23/2011 2017 Fracture of metatarsal bone 06/02/2011 2017 Varicose veins of lower extremity 04/22/2009 2017 Obesity 04/22/2009 04/28/2018 Encounters Date Type Department Care Team Description 08/06/2024 11:25 AM CDT [address] CKD (chronic kidney disease) stage 4, GFR 15-29 ml/min ([facility]) 07/16/2024 10:10 AM NUCLEAR CRITICALITY SAFETY ENGINEER Anesthesia Event [facility] [place] [address] Josias Lee MD Clifton, Susan M., NP 07/16/2024 8:27 AM NUCLEAR CRITICALITY SAFETY ENGINEER - 07/16/2024 11:59 PM NUCLEAR CRITICALITY SAFETY ENGINEER Hospital Encounter [facility] [place] [address] Josias Lee MD Antalick, Amy E., CRNA CKD (chronic kidney disease) stage 4, GFR 15-29 ml/min (HCC); Tuberous sclerosis (HCC) Discharge Disposition: Discharge to home or self care 07/09/2024 Telephone [facility] Ambulatory [place] [address] Taisha Golden RN 06/27/2024 Orders Only [facility] An[place]hesia [place] [address] iSl Beal NP 06/25/2024 Orders Only [facility] [place] [address] Breonna Cleveland NP 06/25/[address] [facility] [address] [place] [address] Advanced Medicine [address]th [place] [address] Carmen Patino RN 06/08/[address] [facility] [address] [place] [address] Advanced Medicine 5th [place] [address] Cale Grayson Scheduling MRI 05/31/[address] [facility] [address] [place] [address] Medicine 5th [place] [address] Jovan Gomez MD Tuberous sclerosis (HCC) (Primary Dx); CKD (chronic kidney disease) stage 4, GFR 15-29 ml/min (HCC) from Last 3 Months Immunizations Immunization Administration Dates Next Due DTaP [...] 06/11/1998 Pneumococcal Conjugate Pcv20 09/21/2023 Tdap 11/25/2008 Surgical History Surgery Date Site/Laterality Comments OTHER SURGICAL HISTORY multiple last 12/18/15 Anesthesia for MRI CRANIOTOMY FOR TRANSECTION O F CORPUS CALLOSUM 02/11/2015 UPPER GASTROINTESTINAL ENDOSCOPY 05/16/2012 - 05/15/2013 LUMBAR PUNCTURE 05/16/2012 - 05/15/2013 REPLACE / REVISE VAGAL NERVE STIMULATOR 05/16/2012 - 05/15/2013 TONSILLECTOMY/ADENOIDECTOMY 05/16/2007 - 05/15/2008 IMPLANTATION VAGAL NERVE STIMULATOR 05/16/2006 - 05/15/2007 VAGAL NERVE STIMULATOR REMOVAL 04/30/2022 TYMPANOSTOMY TUBE PLACEMENT 05/16/1998 - 05/15/1999 Bilateral STRABISMUS SURGERY 05/16/2006 - 05/15/2007 Left PATENT DUCTUS ARTERIOUS LIGATION 05/16/1998 - 05/15/1999 CYST REMOVAL Left armpit ORIF ANKLE FRACTURE 01/14/2023 - 02/12/2023 AV FISTULA PLACEMENT 04/21/2023 Medical History Medical History Date Comments 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 Sensorineural hearing loss ( SNHL) of both ears 03/27/2015 Epilepsy (HCC) 05/28/2007 Hypertension 08/11/2015 Obesity 04/22/2009 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 08/11/2015 Global developmental delay 09/02/2016 Pneumonia 03/29/19 LLL inf iltrate, started on cefepime, transitioned to ceftriaxone 03/30-20, completed 7 day course, on RA 11/23/19 Anemia Gastric reflux Allergic rhinitis Urinary tract infection S/P repair of PDA (patent du ctus arteriosus) 1999 Family History Medical History Relation Name Comments Alcohol abuse Father Family history of alcoholism - (Added by TW Conv) Drug abuse Father Heart disease Father Hyperlipidemia Mother Diabetes Other 1 Diabetes Mellit us - --MGM (Added by TW Conv) Cholelithiasis Other 2 Cholelithiasi s - --MGM (Added by TW Conv) Anesthesia problems Neg Hx Relation Name Status Comments Father Mother Other 1 Other 2 Social History Tobacco Use Types Packs/Day Years Used Date Smoking Tobacco: Never Passive Smoke Exposure: Never Smokeless Tobacco: Never Tobacco Cessation:Counseling Given: Not Answered Alcohol Use Standard Drinks/Week Comments Yes 0 (1 standard drink = 0.6 oz pur e alcohol) [facility] Utilities Answer Date Recorded In the past [...] week 11/14/2023 How often do you attend [facility] or jewish services? More than 4 times per year 11/14/2023 Do you belong to any clubs o r organizations such as jew groups, unions, fraternal or athletic groups, or [...] any time in the past 12 m [facility], were you homeless or living in a penitentiary (including now)? No 11/14/2023 Personal Safety Answer [...] on file Legal Sex Male 11:28 PM NUCLEAR CRITICALITY SAFETY ENGINEER Gender Identity Male 02/01/2021 1:20 PM CDT Sexual Orientation Straight 02/01/2021 1: 20 PM CDT Obstetrics History Last Filed Vital Signs Vital Sign Reading Time Taken Comments Blood Pressure 136/69 07/16/2024 11:11 AM NUCLEAR CRITICALITY SAFETY ENGINEER Pulse 62 07/16/2024 11:11 AM NUCLEAR CRITICALITY SAFETY ENGINEER Temperature 36 C (96.8 F) 07/16/2024 11:02 AM NUCLEAR CRITICALITY SAFETY ENGINEER Respiratory Rate 18 07/16/2024 11:11 AM NUCLEAR CRITICALITY SAFETY ENGINEER Oxygen Saturation 99% 07/16/2024 11:11 AM NUCLEAR CRITICALITY SAFETY ENGINEER Inhaled Oxygen Concentration - - Weight 76.8 kg (169 lb 5 oz) 07/16/2024 9:00 AM NUCLEAR CRITICALITY SAFETY ENGINEER Height 165.5 cm (5' 5.16 ) 05/07/2024 9:51 AM CS T Body Mass Index 28.04 05/07/2024 9:51 AM NUCLEAR CRITICALITY SAFETY ENGINEER Plan of Treatment Health Maintenance Due Date Last Done Comments Varicella Vaccines (1 of 2 - 13+ 2-dose series) 2010 HPV Vaccines (1 - Male 3-dose series) 2012 DTaP/Tdap/Td Vaccine (7 - Td or Tdap) 11/25/2018 11/25/2008, 12/03/2002, 03/11/1999, Additional history exists Covid-19 Vaccine ( season) 2024 11/17/2021, 10/26/2021 Regular Well Visit/Exam 18-64 09/20/2024 09/21/2023, 09/15/2022, 09/10/2021, Additional history exists Depression Screening 03/13/2025 03/13/2024, 11/10/2023, 10/21/2023, Additional history exists Hepatitis B Screening Completed 09/08/1998 , 01/07/1998, 1997 Pneumococcal vaccine <65 Aged Out 09/21/2023 No longer eligible based on patient's age to complete this topic Hepatitis C Screening Completed 12/22/2023 Influenza Vaccine Completed 03/13/2024, , 03/06/2019, Additional history exists Medical Devices Implanted Type Area Fender Mechanic Device Identifier Shelf Expiration Date Model / Serial / Lot [employer] Su[employer]ail Coil Emolization Coated Detachable [place] [employer] Embold [id number] - [id number] Implanted:Qty: 1 on 02/03/2024 at [facility] Embolization Coil [employer] Su[employer] [id number] 10/05/2026 [id number] / / [id number] [employer] Suhail Coil Emolization Coated Detachable [place] [employer]ung[employer] Embold [id number] 0 - [id number] Implanted:Qty: 1 on 02/03/2024 at [facility] Embolization Coil [employer] Su[employer] [id number] 10/05/2026 [id number] / / [id number] [employer] Suhail Coil Emolization Coated Detachable Embold 2amn6vz [place] [employer] [id number] 0 - [id number] Implanted:Qty: 1 on 02/03/2024 at [facility] Embolization Coil [employer] Su[employer]ail [id number] 10/27/2026 [id number] / / [id number] [employer] Su[employer] Coil Emolization Coated Detachable Embold 3tge8zs [place] [employer] [id number] 0 - [id number] Implanted:Qty: 1 on 02/03/2024 at [facility] Embolization Coil [employer] [id number] 10/05/2026 [id number] / / [id number] [employer] Su[employer] Coil Emolization Coated Detachable [place] [employer]ung[employer] Embold 6pik9nj [id number] 0 - [id number] Implanted:Qty: 1 on 02/03/2024 at [facility] Embolization Coil [employer] Su[employer] [id number] 10/05/2026 [id number] / / [id number] Prefill Saline Syringe Compressible Nonaggregate S420gh - [id number] Implanted:Qty: 1 on 02/03/2024 at [facility] Embolization Device [employer] 09/05/2026 [id number] / / [id number] Synthes Lcp 12mm [id number] .7mm 7 Hole Collar 1/3 Tubular Plate Bone 241.371 - [id number] Implanted:Qty: 1 on 02/07/2023 by Jackeline Russell MD at [facility] Plate Left: Leg Synthes I 241.371 / / Synthes Lcp 12mm [id number] .7mm 6 Hole Collar 1/3 Tubular Plate Bone 241.361 - [id number] Implanted:Qty: 1 on 02/07/2023 by Jackeline Russell MD at [facility] Plate Left: Leg Synthes I 241.361 / / Synthes 2.4mm 4mm 24mm Self Tap Self Retain St[employer]rive Low Profile Cortex 201.774 - [id number] Implanted:Qty: 1 on 02/07/2023 by Jackeline Russell MD at [facility] Screw Left: Leg Synthes I 201.774 / / Synthes 3.5mm 6mm 16mm 2.5mm Self Tap Small Hexagonal Socket Low Profile 204.816 - [id number] Implanted:Qty: 3 on 02/07/2023 by Jackeline Russell MD at [facility] Screw Left: Leg Synthes I 204.816 / / Synthes 3.5mm 6mm 22mm 2.5mm Self Tap Small Hexagonal Socket Low Profile 204.822 - [id number] Implanted:Qty: 1 on 02/07/2023 by Jackeline Russell MD at [facility] Screw Left: Leg Synthes I 204.822 / / Synthes 3.5mm 2.9mm 14mm Self Tap Lock [employer] Conical Head T15 Full 212.103 - [id number] Implanted:Qty: 1 on 02/07/2023 by Jackeline Russell MD at [facility] Screw Left: Leg Synthes I 212.103 / / Synthes 3.5mm 6mm 75mm 2.5mm Self Tap Small Hexagonal Socket Low Profile 204.875 - [id number] Implanted:Qty: 1 on 02/07/2023 by Jackeline Russell MD at [facility] Screw Left: Leg Synthes I 204.875 / / Synthes 3.5mm 2.9mm 18mm Self Tap Lock [employer] Conical Head T15 Full 212.105 - [id number] Implanted:Qty: 3 on 02/07/2023 by Jackeline Russell MD at [facility] Screw Left: Leg Synthes I 212.105 / / Synthes 3.5mm 2.9mm 20mm Self Tap Lock [employer] Conical Head T15 Full 212.106 - [id number] Implanted:Qty: 1 on 02/07/2023 by Jackeline Russell MD at [facility] Screw Left: Leg Synthes I 212.106 / / [employer] Angio-Seal Vip 6fr Closere Device [id number] - [id number] Implanted:Qty: 1 on 02/03/2024 at [facility] Vascular Closure Device [employer] Su[employer] 05/23/2024 [id number] / / [id number] Explanted Type Area Fender Mechanic Device Identifier Shelf Expiration Date Model / Serial / Lot Vagus Nerve Stimulator- Implanted: by Arsenio Andre MD (Quantity not on file) Explanted:Qty : 1 on 04/30/2022 at [facility] Vagus Nerve Stimulator Left: Chest Wall #[id number] / #[id number] / Procedures Procedure Name Priority Date/Time Associated [...] Read Routine (OP Routine) 07/16/2024 11:03 AM NUCLEAR CRITICALITY SAFETY ENGINEER CKD (chronic kidney disease) stage 4, GFR [...] ORDERABLES Final Resu lt Performing Organization Address City/[facility]/ZIP Co de Phone Number [facility] ([place]) [address] [facility] [place] [address] * Vitamin D 25 hydroxy (08/06/2024 11:24 AM CDT) Vitamin D 25-OH 40 30 - 80 ng/mL Blood 08/06/2024 11:2 4 AM CDT 08/06/2024 1:48 PM CDT Jovan Gomez MD LAB BLOOD ORDERABLES Final Resu lt Performing Organization Address City/[facility]/ZIP Co de Phone Number [facility] ([place]) 1 [facility] [place] [address] * (ABNORMAL) CBC without differential (08/06/2024 11:24 AM CDT) WBC 4.0 3.8 - 9.9 K/cumm Hgb [...] Final Resu lt [facility] ([place]) 1 [facility] [place] [address] * (ABNORMAL) PTH (08/06/2024 11:24 AM CDT) PTH 333(H) 15 - 65 pg/mL Blood 08/06/2024 11:2 4 AM CDT 08/06/2024 1:48 PM CDT Jovan Gomez MD LAB BLOOD ORDERABLES Final Resu lt [facility] ([place]) 1 [facility] [place] [address] * (ABNORMAL) Renal function panel (08/06/2024 11:24 AM CDT) Sodium 141 135 - 145 mmol/L Potassium, pl 4.7 3.3 - 4.9 mmol/L [facility] ([place]) Chloride 105 97 - 110 mmol/L [facility] ([place]) CO2 20(L) 22 - 32 mmol/L [facility] ([place]) Anion gap 16(H) 2 - 15 mmol/L [facility] ([place]) BUN 50(H) 6 - 25 mg/dL [facility] ([place]) Creatinine 3.90(H) 0.80 - 1.30 mg/dL [facility] ([place]) Glucose 92 70 - 199 [...] classification and Diagnosis of Diabetes Diabetes Care 2021; 46: S19-S40. Current interpretive data was last revised 2022. Calcium 9.6 8.5 - 10.3 mg/dL [facility] ([place]) Phosphorus, pl 3.7 2.3 - 4.5 mg/dL [facility] ([place]) Albumin 4.5 3.5 - 5.0 g/dL [facility] ([place]) Blood 08/06/2024 11:2 4 AM CDT 08/06/2024 1:48 PM CDT us Jovan Gomez MD LAB BLOOD ORDERABLES Final Resu lt [facility] ([place]) 1 [facility] Department [place] [address] * MRI Abdomen W WO Contrast (07/16/2024 11:03 AM NUCLEAR CRITICALITY SAFETY ENGINEER) Anatomical Region Laterality Modality Body N/A Magnetic Resonan ce 07/16/2024 1:14 PM NUCLEAR CRITICALITY SAFETY ENGINEER Impressions 07/16/2024 1:16 PM NUCLEAR CRITICALITY SAFETY ENGINEER 1. Interval embolization of angiomyolipoma in the [...] Yousif Mata MD Narrative 07/16/2024 1:16 PM NUCLEAR CRITICALITY SAFETY ENGINEER EXAMINATION: MRI ABDOMEN W WO CONTRAST HISTORY: [...] it. Electronically signed by: Yousif Mata MD Jovan Gomez MD [facility] MRI PROCEDURES Final Result * Hepatitis C [...] last revised on 2019. Testing performed by: [facility], [address] [place] [address], [place] [address] Blood 12/22/2023 11:1 3 AM CDT 12/22/2023 3:15 PM CDT us Nilton RANDHAWA LAB MICROBIOLOGY - GENE RAL ORDERABLES Edited Result - Final [facility] ([place]) 1 [facility] [place] [address] from Last 3 Months or Most Recently Relevant to Health Maintenance Insurance [facility] MEDICARE [facility] [id number] [employer] MEDICARE [facility] [id number] MEDICARE [facility] [id number] IDNH MEDICARE [facility] [id number] [facility] [id number] [address]PA [facility] [id number] [place] [address] MEDICARE [employer]PA [employer] IDPA IDPA IDPA [facility] [id number] [facility] [id number] Advance Directives For more information, please contact: [phone] Documents on File Type Date Recorded 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 Expl anation Advance Directives and Livin g [...] 9:47 AM 09/02/2021 5:01 PM Care Teams Customer Success Specialist Relationship Specialty Start Date End Date Nilton Jacob PA [address] [place] [address] DR VENTURA [address] [place] [id number] PCP - General Internal Medicine 01/14/22 Wilson Kearns MD [address] [place], [place] [id number] Consulting Physician Neurosurgery 04/30/22 Jovan Gomez MD [address] [place] [address] Referring Physician Transplant 11/10/23 Valentin Peoples MD PhD [address] [place] [address] Referring Physician Neuro Spec Qual Child Neurology 11/10/23 Prabhu Ferraro MD [address] [place] [address] Consulting Physician Infectious Diseases 11/14/23
--- OUTSIDE RECORDS SUMMARY | 2024-08-10 18:58 | XMS_ITS | Clinical Summary ---
Author Organization [facility] [employer] Address [address] 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 This disclosure is being madepursuant to the Care Everywhere program and may not contain all information available regarding this patient. Last updated 18.[facility] [employer] Social History Tobacco Use Types Packs/Day Years Used Date Smoking Tobacco: Never Assessed Sex and Gender Information Value Date Recorded Sex Assigned at Not on file Gender Identity Not on file Sexual Orientation Not on file Plan of Treatment Health Maintenance Due Date Last Done Comments HIV SCREENING 2012 HPV VACCINE (1 - Male 3-dose series) 2012 HEPATITIS C SCREENING 11/18/2015 DTAP/TDAP/TD VACCINES (1 - Tdap) 2016 HEPATITIS B VACCINE (1 of 3 - 19+ 3-dose series) 2016 COVID-19 VACCINE (1 - 2023-2 5 season) 2024 INFLUENZA VACCINE (#1) 2024 DEPRESSION SCREENING 05/16/2024 ZOSTER VACCINE (1 of 2) 11/23/2047 HIB VACCINE Aged Out No longer eligi ble based on patient's age to complete this topic MENINGOCOCCAL (Group B) VACC INE SHARED DECISION-MAKING Aged Out No longer eligibl e based on patient's age to complete this topic MENINGOCOCCAL GROUPS A/C/Y/W VACCINE Aged Out No longer eligible b ased on patient's age to complete this topic PNEUMOCOCCAL VACCINE Aged Out No long er eligible based on patient's age to complete this topic
--- OUTSIDE RECORDS SUMMARY | 2024-08-10 19:01 | XMS_ITS ---
[...] - Completed clobazam 10 MG Oral Tablet [id number]: 00:00Z - Completed cannabidiol 100 MG/ML Oral Solution [Epidiolex] - Completed clobazam 10 MG Oral Tablet [id number]: 00:00Z - Completed cannabidiol 100 MG/ML Oral Solution [Epidiolex] - Completed clobazam 10 MG Oral Tablet [id number]: 00:00Z - Completed clonazepam 0.5 MG Disintegra ting Oral Tablet - Completed cannabidiol 100 MG/ML Oral Solution [Epidiolex] - Completed cannabidiol 100 MG/ML Oral Solution [Epidiolex] - Completed - - Compl eted {2 (0.1 ML) (diazepam 75 MG/ ML Nasal [place] [Valtoco]) } Pack [Valtoco 15 MG Dose [...] - Completed clobazam 10 MG Oral Tablet [id number]: 00:00Z - Completed amlodipine 10 MG Oral Tablet [id number] 0:00:00Z - Completed - - Compl eted clobazam 10 MG Oral Tablet [id number]: 00:00Z - Completed fidaxomicin 200 MG Oral Tabl et [Dificid] - Completed vitamin B12 1 MG Sublingual Tablet 00:00:00Z - Completed cannabidiol 100 MG/ML Oral Solution [Epidiolex] - Completed - - Compl eted cenobamate 200 MG Oral Table t [Xcopri] - Completed clobazam 10 MG Oral Tablet [id number]: 00:00Z - Completed ciprofloxacin 3 MG/ML / dexamethasone 1 MG/ML Otic Suspension - Completed - - Compl eted - - Compl eted amlodipine 10 MG Oral Tablet [id number] 0:00:00Z - Completed clobazam 10 MG Oral Tablet [id number]: 00:00Z - Completed {14 (cenobamate 150 MG Oral Tablet [Xcopri]) / 14 (cenobamate 200 MG Oral Tablet [Xcopri]) } Pack [Xcopri Titration Pack - 150 MG (14), 200 MG (14) 28 Count] - Completed amlodipine 10 MG Oral Tablet [id number] 0:00:00Z - Completed {14 (cenobamate 12.5 MG Oral Tablet [Xcopri]) / 14 (cenobamate 25 MG Oral Tablet [Xcopri]) } Pack [Xcopri Titration Pack - 12.5 MG (14), 25 MG (14) 28 Count] - Completed - - Compl eted amlodipine 10 MG Oral Tablet [id number] 0:00:00Z - Completed fidaxomicin 200 MG Oral Tabl et [Dificid] - Completed clobazam 10 MG Oral Tablet [id number]: 00:00Z - Completed clobazam 10 MG Oral Tablet [id number]: 00:00Z - Completed - - Compl eted cannabidiol 100 MG/ML Oral Solution [Epidiolex] - Completed cannabidiol 100 MG/ML Oral Solution [Epidiolex] - Completed cannabidiol 100 MG/ML Oral Solution [Epidiolex] - Completed cenobamate 150 MG Oral Table t [Xcopri] - Completed clobazam 10 MG Oral Tablet [id number]: 00:00Z - Completed cenobamate 200 MG Oral Table t [Xcopri] - Completed cannabidiol 100 MG/ML Oral Solution [Epidiolex] - Completed cannabidiol 100 MG/ML Oral Solution [Epidiolex] - Completed cannabidiol 100 MG/ML Oral Solution [Epidiolex] - Completed fidaxomicin 200 MG Oral Tabl et [Dificid] - Completed clobazam 10 MG Oral Tablet [id number]: 00:00Z - Completed famotidine 20 MG Oral Tablet [id number] 0:00:00Z - Completed cannabidiol 100 MG/ML Oral Solution [Epidiolex] - Completed clobazam 10 MG Oral Tablet [id number]: 00:00Z - Completed clobazam 10 MG Oral Tablet [id number]: 00:00Z - Completed ondansetron 4 MG Disintegrat [...]
[2024-08-10 19:09] VITALS: BP 126/74; PULSE 73; RESP 16; TEMP 36.6; O2SAT 100
--- NOTE | 2024-08-10 19:18 | ED.LOWEXIN ---
HPI - Extremity Injury (Lower) General Chief Complaint: Extremity Injury, Lower Stated Complaint: right ankle injury Time Seen by Provider: 08/10/24 19:18 Source: patient Mode of arrival: ambulatory Limitations: no limitations History of Present Illness HPI Narrative: 28-year-old male with history of seizure disorder presented with parents for complaint of right ankle pain following a fall during a seizure while standing this evening. They report he has not wanted to bear weight on the right foot and has been using his wheelchair. Parents endorse he hit the back of his head on the ground and has road rash. They gave Tylenol. Denies deformity or bruising. Report Chronic swelling of the ankles due to kidney disease. History of broken bones in feet and ankles due to falling form seizures and follows with ortho at [place]. Related Data Home Medications ?Medication ?Instructions ?Recorded ?Confirmed ?Last Taken ?Type amlodipine 10 mg tablet 10 mg PO DAILY 06/21/21 08/10/24 Unknown History cannabidiol 100 mg/mL oral 8 mg PO BID 06/21/21 08/10/24 Unknown History solution (Epidiolex) clobazam 10 mg tablet 5 mg PO BID 06/21/21 08/10/24 Unknown History lacosamide 150 mg tablet (Vimpat) 150 mg PO BID 06/21/21 08/10/24 Unknown History quetiapine 50 mg tablet 50 mg PO DAILY 06/21/21 08/10/24 Unknown History clonazepam 0.5 mg disintegrating 0.5 mg PO DAILY PRN Seizures 06/02/22 08/10/24 Unknown History tablet diazepam (Valtoco) 15 mg intranasal DAILY PRN 06/02/22 08/10/24 Unknown History Congestion everolimus (antineoplastic) 10 mg 10 mg PO DAILY 06/02/22 08/10/24 Unknown History tablet cenobamate 200 mg tablet (Xcopri) mg 08/10/24 Unknown History cyanocobalamin (vitamin B-12) mcg 08/10/24 Unknown History 1,000 mcg sublingual tablet famotidine 20 mg tablet mg 08/10/24 Unknown History Allergies Allergy/AdvReac Type Severity Reaction Status Date / Time amoxicillin (From Augmentin) Allergy Hives Verified 08/10/24 18:58 clavulanic acid (From Allergy Hives Verified 08/10/24 18:58 Augmentin) felbamate (From Felbatol) Allergy Unknown Verified 08/10/24 18:58 lorazepam (From Ativan) Allergy Anaphylaxis Verified 08/10/24 18:58 prochlorperazine (From Allergy Swelling Verified 08/10/24 18:58 Compazine) of Lip/Tongue/Throat Review of Systems Review of Systems: CONSTITUTIONAL: Denies body aches, fever, chills EYES: Denies visual changes ENT: Denies rhinorrhea, congestion CARDIOVASCULAR: Denies chest pain, palpitations, or edema. RESPIRATORY: Denies cough or dyspnea. GASTROINTESTINAL: Denies abdominal pain, nausea, vomiting, or diarrhea. SKIN: Denies rash, itching, or wounds. MUSCULOSKELETAL: reports right ankle pain NEUROLOGIC: Denies headache, numbness, tingling, or weakness. All systems reviewed & are unremarkable except as noted in HPI and below PMFSH Past Medical History Medical History Hypertension Kidney disease Seizure Surgical History Surgical History Hx of tonsillectomy Status post VNS (vagus nerve stimulator) placement Family History Family History Mother Medical history non-contributory Social History Social History Smoking status: Never smoker Alcohol intake: never Substance use: never Living arrangements: with family Additional occupation/education comments: Disabled Gender identity (if verbalized by the patient): Male Spiritual care concerns: No Comments At time of signature, I have reviewed and agree with nursing past medical, surgical, social and family history unless otherwise noted. Please see nursing chart for further information. There is no relevant family history pertinent to the presenting complaint Exam Narrative: GENERAL: Well-appearing HEAD: Posterior scalp with small hematoma and abrasion, no bleeding CHEST: Speaks in full sentences. No respiratory distress. HEART: Regular rate and rhythm. Normal and equal peripheral pulses. EXTREMITIES: Right foot has baseline strength and sensation, endorses pain with weight bearing. Denies tenderness of foot/ankle with palpation. No ecchymosis, No open wounds, or obvious deformity; alignment normal. Bilateral ankle edema 2+. pulse palpable and equal bilaterally, skin warm, dry, pink. Capillary refill less than 3 seconds. Using w/c from home. SKIN: Warm, dry NEURO: Alert Course Course Emergency Course: Patient is aware of diagnosis, understands and agrees to treatment plan. Anticipatory guidance given. Patient agrees to follow-up as directed and is aware of reasons to seek care at the emergency department. Portions of this record may have been created with voice recognition software Level of Care: Express Care Visit Vital Signs Vital signs: Vital Signs Temperature 98 F 08/10/24 19:09 Pulse Rate 73 08/10/24 19:09 Respiratory Rate 16 08/10/24 19:09 Blood Pressure 126/74 08/10/24 19:09 Pulse Oximetry 100 08/10/24 19:09 Oxygen Delivery Room Air 08/10/24 19:09 Temperature 98 F 08/10/24 19:09 Pulse Rate 73 08/10/24 19:09 Respiratory Rate 16 08/10/24 19:09 Blood Pressure 126/74 08/10/24 19:09 Pulse Oximetry 100 08/10/24 19:09 Oxygen Delivery Room Air 08/10/24 19:09 Reviewed MDM - Extremity Injury (Lower) MDM Narrative Medical decision making narrative: Discussed physical exam findings and xray; offered OCL, they state he has a walking boot from previous fractures and will f/u with their established ortho at [facility]. Advised supportive measures and signs/symptoms to go to the ER. Pt is appropriate for outpt treatment and f/u. Differential Diagnosis Differential diagnosis: Likely ankle sprain and strain and ankle fracture Imaging Data Radiologist's impression: Patient: Rolo Aaron : 1995 MR#: [id number] Age: 28 Acct:[id number] Loc: [facility] ADM Date: 08/10/24Attending Dr: Ordering Physician: Aaliyah Delgado APRN Date of Service: 08/10/24 Procedure(s): XR ankle RT min 3V Accession Number(s): [id number] cc: Nidia, Nilton Macias PA; Aaliyah Delgado APRN~ XR ankle RT min 3V Ordering provider: Aaliyah Delgado APRN History: . fall during seizure,not bearing weight . Comparison: None. FINDINGS: BONES: Lucency is seen in the distal metaphysis of the right fibula is noted suggestive of a fracture. Fracture in the lateral malleolus is seen which may be acute or chronic. . JOINT SPACES: Normal. SOFT TISSUES: Normal. IMPRESSION: Highly suggestive acute fracture in the distal metaphysis of the right fibula. Old fracture in the tip of the right fibula. Discharge Plan Discharge Clinical Impression: Ankle fracture, right, Hematoma of scalp Patient Disposition: Home, Self-Care Condition: Stable Instructions: Antibiotic Form, Ankle Fracture (ED) Additional Instructions: Rest, ice and elevate the right leg Tylenol 1000mg every 8 hours. wear the walking boot when up walking Ice to scalp abrasion Go to the ER immediately for increased pain, tingling/numbness, swelling, redness, etc Follow up with your established Orthopedic Surgeon in 3 days for further evaluation - please call for an appointment. Patient Language: Latvian Prescriptions: No Action amlodipine 10 mg tablet 10 mg PO DAILY lacosamide [Vimpat] 150 mg tablet 150 mg PO BID clobazam 10 mg tablet 5 mg PO BID quetiapine 50 mg tablet 50 mg PO DAILY Rx Instructions: 1 IN AM AND 2 IN PM Epidiolex 100 mg/mL solution 8 mg PO BID Valtoco 15 mg/2 spray (7.5/0.1mL x 2) spray,non-aerosol 15 mg INTRANASAL DAILY PRN (Reason: Congestion) everolimus (antineoplastic) 10 mg tablet 10 mg PO DAILY clonazepam 0.5 mg tablet,disintegrating 0.5 mg PO DAILY PRN (Reason: Seizures) famotidine 20 mg tablet cyanocobalamin (vitamin B-12) 1,000 mcg tablet, sublingual Xcopri 200 mg tablet Follow-up/Referrals: iNdia,SYDNEE Lujan [Primary Care Provider] - Time of Disposition: 20:15
== END 2024-08-10 20:23 | disposition home or self-care (01) ==
PROVIDERS: Emergency Provider Nurse Practitioner Family; PCP Physician Assistant
DX: S82.891A Other fracture of right lower leg, initial encounter for closed fracture (principal); W19.XXXA Unspecified fall, initial encounter; S00.03XA Contusion of scalp, initial encounter; I10 Essential (primary) hypertension; G40.909 Epilepsy, unspecified, not intractable, without status epilepticus; N28.9 Disorder of kidney and ureter, unspecified
CPT/HCPCS: 73610; 99213; G0463